=== PATIENT | female | born 1975 | race Caucasian/White ===

== ENCOUNTER → 2016-07-12 | Outpatient (CLI) | payer OTHER ==
[~2016-07-12] MED LIST: AZIT500T2 PO; DICL75TA PO; HYDR-3533 PO; LEVO.1 PO; LEXA10TA PO; METO50TA PO; PRED5PAK PO; PRED5PAK2 PO; SYNT88TA PO; VALT1TAB PO
[2016-07-12 10:49] LABS: FREE T3 2.49 PG/ML (2.18-3.98)
== END ==
LOC: ELAB 08:00
DX: E03.9 Hypothyroidism, unspecified (principal); E27.9 Disorder of adrenal gland, unspecified
CPT/HCPCS: 36415; 82024; 82533; 84443; 84481

== ENCOUNTER → 2016-07-29 | Outpatient (CLI) | payer OTHER ==
[2016-07-29 16:00] LABS: CHLAMYDIA PCR NOT DETECTED (NOT DETECT); NEISSERIA PCR NOT DETECTED (NOT DETECT)
[2016-07-31 17:52] LABS: HSV2 IGM IFA NEGATIVE (())
== END ==
LOC: ELAB 11:38
PROVIDERS: ATTEND Obstetrics & Gynecology
DX: Z11.3 Encounter for screening for infections with a predominantly sexual mode of transmission (principal); R35.0 Frequency of micturition; B96.89 Other specified bacterial agents as the cause of diseases classified elsewhere
CPT/HCPCS: 36415; 86695; 86696; 87077; 87086; 87186; 87491; 87591

== ENCOUNTER 2016-10-31 02:50 | Emergency (ER) | payer OTHER ==
[~2016-10-31] VITALS: Ht 157.5 cm; Wt 93.0 kg
[~2016-10-31 02:50] MED LIST changes: -DICL75TA PO; -HYDR-3533 PO; -SYNT88TA PO; -VALT1TAB PO
[2016-10-31 02:53] VITALS: BP 135/88; PULSE 66; RESP 16; TEMP 98; O2SAT 98
[2016-10-31] MEDS ORDERED: SYNT88TA PO (03:26)
[2016-10-31] MEDS ORDERED: VALT1TAB PO (03:26)
[2016-10-31] MEDS ORDERED: ACETAMINOPHEN/HYDROcodone 325 MG/5 MG TAB PO ONE (03:30)
--- NOTE | 2016-10-31 03:40 | PD ---
HPI Chief Complaint: Injury Time Seen by Provider: 03:30 Travel History International Travel<30 days: No Contact w/Intl Traveler<30days: No Traveled to known affect area: No History of Present Illness HPI 41-year-old white female presents to emergency department with complaints of left foot pain. She states that she has had pain now on and off for several months. She was diagnosed with plantar fasciitis. She states that she had rest her foot and taken ibuprofen and has had improvement of her pain. She also had change tissues. Over last month or 2 she has had pain recur. She states that she has not been exercising or doing any significant physical activity and has had worsening pain across the arch across the proximal forefoot up into her pretibial region. She states that ibuprofen is not helping at this point. The patient states that she was just recently treated for pneumonia with Zithromax and prednisone. She had neglected to tell her doctor that her foot had been bothering her. She presents this evening due to pain. Pain is moderate. Worse with activity. She denies any direct trauma. No numbness or tingling. PFSH Past Medical History Narrative Medical Hypertension, genital herpes, hypothyroidism, plantars fasciatus I Cancer: No Cardiovascular Problems: No Diabetes: No Diminished Hearing: No Endocrine: Yes Genitourinary: No Hepatitis: No Hiatal Hernia: No Hypertension: Yes Immune Disorder: No Musculoskeletal: No Neurologic: No Psychiatric: Yes (anxiety ,depression) Reproductive: No Respiratory: No Immunizations Current: No Seizures: Yes ( A CHILD) Thyroid Disease: Yes ?: Not : 0 Past Surgical History AICD: No Joint Replacement: No Oral Surgery: Yes (septoplasty tympnoplasty) Pacemaker: No Tympanostomy Tube: Yes Other Surgery: Yes (SEPTOPLASTY; RHINOPLASTY) Social History Alcohol Use: Yes (rare) Tobacco Use: No Substance Use: No Allergies-Medications (Allergen,Severity, Reaction): Coded Allergies: Percocet (Unverified Allergy, Severe, nausea, 10/31/16) Reported Meds & Prescriptions Reported Meds & Active Scripts Active Lortab (Hydrocodone-Acetaminophen) 5-325 Mg Tab 1 Tab PO Q8HR PRN Diclofenac Sodium DR (Diclofenac Sodium) 75 Mg Tabdr 75 Mg PO BID Prednisone (48) 5 mg tab Dose Pack (Prednisone) 5 Mg Dspk 5 Mg PO DIRECTED Lexapro (Escitalopram Oxalate) 10 Mg Tab 10 Mg PO HS Metoprolol Tartrate 50 Mg Tab 50 Mg PO DAILY Reported Valtrex (Valacyclovir HCl) 1 Gm Tab 1,000 Mg PO DAILY Synthroid (Levothyroxine Sodium) 88 Mcg Tab 88 Mcg PO DAILY Review of Systems Except as stated in HPI: all other systems reviewed are Neg Physical Exam Narrative GENERAL: This is a well-nourished, well-developed patient, in no apparent distress. SKIN: No rashes, ecchymoses or lesions. Warm and dry. HEAD: Atraumatic. Normocephalic. EYES: PERRL, EOMI, no discharge or injection. No scleral icterus. EARS: Clear NOSE: Nasal turbinates appear normal. THROAT: Mucosa pink and moist. Airway patent. NECK: Trachea midline. supple, moves head freely. LUNGS: Clear to auscultation. CV: Regular in rhythm. ABDOMEN: Soft nontender. EXT: No clubbing cyanosis or edema. Examination of the left lower extremity reveals intact sensation with good distal pulse. There is no erythema or warmth. No joint effusion. No swelling. She complains of pain across the proximal forefoot across the arch of the foot into the heel. No pain in the Achilles or calf. No distal forefoot tenderness. Data Data Last Documented VS Vital Signs Date Time Temp Pulse Resp B/P Pulse Ox O2 Delivery O2 Flow Rate FiO2 10/31/16 02:53 98.0 66 16 135/88 98 Orders Foot, Complete ([id number]) (10/31/16 03:27) Splint Or Brace Apply/Monitor (10/31/16 03:27) Crutches (10/31/16 03:27) Acetamin-Hydrocod 325-5 Mg ([place] 5-325 (10/31/16 03:30) MDM Medical Decision Making Medical Screen Exam Complete: Yes Emergency Medical Condition: Yes Medical Record Reviewed: Yes Interpretation(s) Left foot: Negative for fracture. Positive degenerative changes without heel spur Differential Diagnosis Differential diagnoses: Sprain, strain, plantar fasciitis, tarsal tunnel syndrome Narrative Course X-ray of the left foot shows mild degenerative changes Patient given Lortab 5 mg by mouth for pain here. She given Miko wrap and crutches. This is right foot pain rule out plantar fasciitis, tendinitis, tarsal tunnel syndrome Diagnosis Primary Impression: Right foot pain Patient Instructions: General Instructions Departure Forms: Tests/Procedures, Work Release Special Instructions: Sedentary work 3 days. Additional Instructions: Rest. Elevation. Ice packs for the next 3 days. Miko wrap and crutches. No weight-bearing and then progress to weight-bearing as tolerated. Medications as directed Follow-up with an orthopedist or your doctor in one week. Return to the ER if any problems Med/Other Pt SpecificInfo: Prescription(s) given Scripts Hydrocodone-Acetaminophen (Lortab)5-325 Mg Tab1 Tab PO Q8HR PRN (PAIN) #12 TAB Prov:Jeremy Mason MD 10/31/[address] 75 Mg Tabdr75 Mg PO BID #20 TAB Prov:Jeremy Mason MD 10/31/16 Disposition: 01 DISCHARGE HOME Condition: Stable Odin Bradford Oct 31, 2016 03:40
[2016-10-31] MEDS ORDERED: DICL75TA PO (04:25)
[2016-10-31] MEDS ORDERED: HYDR-3533 PO (04:25)
--- NOTE | 2016-10-31 04:25 | RADRPT ---
EXAM DATE/TIME: 10/31/2016 03:54 [facility] COMPARISON: No previous studies available for comparison. INDICATIONS : Fall days ago. Pain and swelling. MEDICAL HISTORY : None. SURGICAL HISTORY : None. ENCOUNTER: Initial ACUITY: 4 - 6 days PAIN SCORE: 6/10 LOCATION: Left lateral FINDINGS: Three view examination of the left foot demonstrates no soft tissue swelling, dislocation, or fractur e. The tarsal bones appear intact. The interphalangeal and metatarsophalangeal joints are intact. The calcaneus is intact. Bony mineralization is normal. CONCLUSION: Unremarkable exam. Micah Paris MD on October 31, 2016 at 4:23 Board Certified Radiologist. This report was verified electronically.
[2016-11-11] MEDS ORDERED: METO50TA PO (14:36)
[2016-12-06] MEDS ORDERED: LEXA10TA PO (16:31)
== END 2016-10-31 04:45 | disposition home or self-care (01) ==
LOC: NEPD 02:50
DX: M79.672 Pain in left foot (principal); I10 Essential (primary) hypertension
CPT/HCPCS: 73630; 99283; E0113; 29105

== ENCOUNTER → 2016-10-31 | Outpatient (CLI) | payer OTHER ==
[~2016-10-31] MED LIST changes: -AZIT500T2 PO; -PRED5PAK PO
[2016-10-31 09:12] LABS: FREE T3 2.32 PG/ML (2.18-3.98); FREE T4 0.93 NG/DL (0.76-1.46)
== END ==
LOC: ELAB 07:16
DX: E03.9 Hypothyroidism, unspecified (principal)
CPT/HCPCS: 36415; 84439; 84443; 84481

== ENCOUNTER → 2016-12-02 | Outpatient (CLI) | payer OTHER ==
[~2016-12-02] MED LIST changes: +DICL75TA PO; +HYDR-3533 PO; -LEVO.1 PO; +SYNT88TA PO; +VALT1TAB PO
[2016-12-02 09:51] LABS: FREE T3 1.83 PG/ML (2.18-3.98); FREE T4 1.02 NG/DL (0.76-1.46)
== END ==
LOC: ELAB 08:04
DX: E03.9 Hypothyroidism, unspecified (principal)
CPT/HCPCS: 36415; 84439; 84443; 84481

== ENCOUNTER → 2016-12-26 | Outpatient (CLI) | payer OTHER | LOC: CLAB 10:08 | PROVIDERS: ATTEND Obstetrics & Gynecology | DX: R35.0 Frequency of micturition (principal) | CPT/HCPCS: 87086 ==

== ENCOUNTER → 2017-01-13 | Outpatient (CLI) | payer OTHER ==
[2017-01-13 09:46] LABS: FREE T4 1.12 NG/DL (0.76-1.46)
== END ==
LOC: ELAB 07:53
DX: E03.9 Hypothyroidism, unspecified (principal)
CPT/HCPCS: 36415; 84439; 84443; 84481

== ENCOUNTER → 2017-03-08 | Outpatient (CLI) | payer OTHER ==
[~2017-03-08] MED LIST changes: +CYCL1TAB29 PO; +DICL1CAP3 PO; -DICL75TA PO; +HORMONE SUPPLEMENT; -HYDR-3533 PO; +KETO60IN6 IM; +LEVO100T5 PO; +MEDR4PAK PO; +MOBI15TA PO; +NORC5TAB PO; +PRED20 PO; -PRED5PAK2 PO; +TIZA4CAP3 PO; +TRAM50TA PO; +TYLE325T PO; +ZANT300T PO
[2017-03-08 09:42] LABS: FREE T3 2.65 PG/ML (2.18-3.98); THYROXINE (T4) 7.7 MCG/DL (4.8-13.9)
== END ==
LOC: ELAB 07:16
DX: E03.9 Hypothyroidism, unspecified (principal)
CPT/HCPCS: 36415; 84436; 84443; 84481

== ENCOUNTER 2017-03-19 11:10 | Emergency (ER) | payer OTHER ==
[~2017-03-19] VITALS: Ht 157.5 cm; Wt 90.0 kg
[~2017-03-19 11:10] MED LIST changes: -CYCL1TAB29 PO; -DICL1CAP3 PO; -HORMONE SUPPLEMENT; -KETO60IN6 IM; -LEVO100T5 PO; -MEDR4PAK PO; -NORC5TAB PO; -PRED20 PO; -TRAM50TA PO; -TYLE325T PO; -ZANT300T PO
[2017-03-19 11:12] VITALS: BP 128/84; PULSE 90; RESP 24; TEMP 97.9; O2SAT 97
[2017-03-19] MEDS ORDERED: MEDR4PAK PO (11:59)
--- NOTE | 2017-03-19 12:00 | PD ---
HPI Chief Complaint: Back/ Neck Pain or Injury Time Seen by Provider: 11:58 Travel History International Travel<30 days: No Contact w/Intl Traveler<30days: No Traveled to known affect area: No History of Present Illness HPI 49-year-old female presents to the emergency department complaining of left lower back pain that radiates down her left leg for over one month. Denies injury. Denies encopresis, incontinence, saddle anesthesia. Denies IV drug use or cancer. Denies fever, abdominal pain, dysuria, change in stool. Reports vomiting one time yesterday and she associates it to being in pain. Denies difficulty ambulating, except for it aggravates pain. Has tried ibuprofen, meloxicam, naproxen, Flexeril for symptom management. Has seen her primary care provider in regards to this complaint. Pain is aggravated with movement. Pain is decreased by laying on her stomach with her legs tucked up underneath her. Has no other medical complaints. Allergies oxycodone. Patient states she is not allergic to acetaminophen. Symptoms are moderate in severity. No other modifying factors or associated signs and symptoms. PFSH Past Medical History Cancer: No Cardiovascular Problems: No Diabetes: No Diminished Hearing: No Endocrine: Yes Genitourinary: No Hepatitis: No Hiatal Hernia: No Hypertension: Yes Immune Disorder: No Musculoskeletal: No Neurologic: No Psychiatric: Yes (anxiety ,depression) Reproductive: No Respiratory: No Immunizations Current: No Seizures: Yes ( A CHILD) Thyroid Disease: Yes ?: Not : 0 Past Surgical History AICD: No Joint Replacement: No Oral Surgery: Yes (septoplasty tympnoplasty) Pacemaker: No Tympanostomy Tube: Yes Other Surgery: Yes (SEPTOPLASTY; RHINOPLASTY) Social History Alcohol Use: Yes (rare) Tobacco Use: No Substance Use: No Allergies-Medications (Allergen,Severity, Reaction): Coded Allergies: acetaminophen (Unverified Allergy, Severe, nausea, 03/09/17) oxycodone (Unverified Allergy, Severe, nausea, 03/09/17) Reported Meds & Prescriptions Reported Meds & Active Scripts Active Medrol Dosepak (Methylprednisolone) 4 Mg Dspk 4 Mg PO DIRECTED Per Pharmacist direction Tizanidine (Tizanidine HCl) 4 Mg Cap 4 Mg PO TID Mobic (Meloxicam) 15 Mg Tab 15 Mg PO DAILY Lexapro (Escitalopram Oxalate) 10 Mg Tab 10 Mg PO HS Metoprolol Tartrate 50 Mg Tab 50 Mg PO DAILY Reported Valtrex (Valacyclovir HCl) 1 Gm Tab 1,000 Mg PO DAILY Synthroid (Levothyroxine Sodium) 88 Mcg Tab 88 Mcg PO DAILY Review of Systems Except as stated in HPI: all other systems reviewed are Neg Physical Exam Narrative GENERAL: Well-nourished, well-developed female patient, in no acute distress; afebrile, nontoxic-appearing SKIN: Warm and dry. HEAD: Atraumatic. Normocephalic. EYES: Pupils equal and round. No scleral icterus. No injection or drainage. ENT: Mucosa pink and moist. Airway patent. NECK: Trachea midline. CARDIOVASCULAR: Regular rate. RESPIRATORY: No accessory muscle use. GASTROINTESTINAL: Obese. MUSCULOSKELETAL: Bilateral lower extremities supple and non-tense with 2+ pedal pulses and sensory intact; with full range of motion and 5/5 strength. 2 + DTRs bilaterally. Active dorsiflexion and extension of bilateral feet. Left straight leg raise is positive for low back pain. Ambulatory in room with left lower extremity limp. Sitting up in bed at 90. No obvious deformities. No clubbing. No cyanosis. No edema. BACK: No midline point tenderness on palpation of the lumbar spine. Tenderness on palpation of left lumbar iliosacral area. No obvious deformities. NEUROLOGICAL: Awake and alert. Oriented 3. No obvious cranial nerve deficits. Motor grossly within normal limits. Normal speech. Moves all extremities. 5/5 strength to all extremities. Sensory intact. PSYCHIATRIC: Appropriate mood and affect; insight and judgment normal. Data Data Last Documented VS Vital Signs Date Time Temp Pulse Resp B/P (MAP) Pulse Ox O2 Delivery O2 Flow Rate FiO2 03/19/17 11:12 97.9 90 24 128/84 (99) 97 Room Air Orders Orders Ketorolac Inj (Toradol Inj) (03/19/17 12:15) Orphenadrine Inj (Norflex Inj) (03/19/17 12:15) MDM Medical Decision Making Medical Screen Exam Complete: Yes Emergency Medical Condition: Yes Medical Record Reviewed: Yes Differential Diagnosis Sciatica, low back pain, lumbar radiculopathy, low back strain Narrative Course 41-year-old female physical examination consistent with left-sided low back pain with sciatica. Denies encopresis, incontinence, saddle anesthesia. Denies IV drug use or cancer. Patient is afebrile and nontoxic-appearing. No midline tenderness on palpation of the lumbar spine. Ambulatory in the room with a limp to the left lower extremities. Has been seen by her primary care provider with multiple other treatments for symptom management. Patient has NSAIDs and muscle relaxers at home. Toradol and Norflex administered in the ER. Medrol dosepak was supplied for the patient for home. Instructed patient to follow up with primary care provider. Patient verbalizes understanding and agreement with treatment plan. Patient is medically cleared and stable for discharge. Discussed reasons to return to the emergency department. Patient agrees with treatment plan. The patients vital signs are stable and the patient is stable for outpatient follow-up and treatment. Patient discharged home, stable and in no acute distress. Diagnosis Primary Impression: Left-sided low back pain with sciatica Qualified Codes: M54.42 - Lumbago with sciatica, left side Referrals: Primary Care Physician Patient Instructions: Acute Low Back Pain (ED), General Instructions, Sciatica (ED) Additional Instructions: Tylenol or ibuprofen as directed and as needed for pain Muscle relaxers as prescribed and as needed for muscle spasms Heating pad and/or ice to affected area to reduce pain Avoid aggravating activities; increase activity as tolerated Follow-up with primary care provider Return to emergency department immediately with worsening of symptoms Med/Other Pt SpecificInfo: Prescription(s) given Scripts Methylprednisolone Dosepak (Medrol Dosepak) 4 Mg Dspk 4 MG PO DIRECTED, #1 DSPK 0 Refills Per Pharmacist direction Prov: Ashley Steele 03/19/17 Disposition: 01 DISCHARGE HOME Condition: Stable Ashley Steele Mar 19, 2017 12:00
[2017-03-19] MEDS ORDERED: ORPHENADRINE INJ 60 MG/2 ML AMP IM ONE (12:15)
[2017-03-19] MEDS ORDERED: KETOROLAC TROMETHAMINE 60 MG/2 ML (IM) VIAL IM ONE (12:15)
[2017-03-24] MEDS ORDERED: TRAM50TA PO (09:06)
[2017-03-24] MEDS ORDERED: KETO60IN6 IM (09:07)
[2017-03-31] MEDS ORDERED: NORC5TAB PO (09:22)
[2017-03-31] MEDS ORDERED: METO50TA PO (09:22)
[2017-03-31] MEDS ORDERED: LEXA10TA PO (09:22)
== END 2017-03-19 13:14 | disposition home or self-care (01) ==
LOC: NEPK 11:10
DX: M54.42 Lumbago with sciatica, left side (principal)
CPT/HCPCS: 96372; 99284; J1885; J2360

== ENCOUNTER 2017-03-24 09:47 | Emergency (ER) | payer OTHER ==
[~2017-03-24] VITALS: Ht 165.1 cm; Wt 100.0 kg
[~2017-03-24 09:47] MED LIST changes: +KETO60IN6 IM; +MEDR4PAK PO; +TRAM50TA PO
[2017-03-24 09:59] VITALS: BP 121/67; PULSE 70; RESP 20; TEMP 98.7; O2SAT 97
[2017-03-24] MEDS ORDERED: CYCL1TAB29 PO (10:15)
[2017-03-24] MEDS ORDERED: HORMONE SUPPLEMENT (10:15)
[2017-03-24] MEDS ORDERED: LEVO100T5 PO (10:15)
[2017-03-24] MEDS ORDERED: TYLE325T PO (10:15)
[2017-03-24] MEDS ORDERED: DEXAMETHASONE SOD PHOS 4 MG/ML VIAL IM ONE (11:30)
[2017-03-24] MEDS ORDERED: ACETAMINOPHEN/HYDROcodone 325 MG/5 MG TAB PO ONE (11:30)
[2017-03-24] MEDS ORDERED: NORC5TAB PO (11:39)
[2017-03-24] MEDS ORDERED: PRED20 PO (11:39)
[2017-03-24] MEDS ORDERED: ZANT300T PO (11:40)
--- NOTE | 2017-03-24 11:40 | PD ---
HPI Chief Complaint: Pain: Acute or Chronic Time Seen by Provider: 10:19 Travel History International Travel<30 days: No Contact w/Intl Traveler<30days: No Traveled to known affect area: No History of Present Illness HPI 41-year-old female complains of left low back pain, left leg pain. Patient states that she has sciatica pain for the past month. Patient states the pain get worse for the past few days. Patient has been taking meloxicam, Naprosyn, Flexeril for pain. Patient was seen in emergency room 5 days ago for the pain. Patient was given Toradol and Norflex injection. Patient was given prescription for Medrol Dosepak. Patient states that the pain got better and get worse again today. Patient denies any new injury. Patient states that she has some numbness sensation on the bottom of left foot. Patient states that she has severe pain started on the left side low back area to the buttock area with radiation to left leg. Patient states the pain is worse with weightbearing. Patient denies any weakness and numbness lower extremity. Patient denies any saddle anesthesia. Patient denies any bladder or bowel control problem. PFSH Past Medical History Anxiety: Yes Depression: Yes Cancer: No Cardiovascular Problems: No Diabetes: No Diminished Hearing: No Endocrine: Yes Genitourinary: No Hepatitis: No Hiatal Hernia: No Hypertension: Yes Immune Disorder: No Medical other: Yes (sciatica) Musculoskeletal: No Neurologic: No Psychiatric: Yes (anxiety ,depression) Reproductive: No Respiratory: No Immunizations Current: No Seizures: Yes ( A CHILD) Thyroid Disease: Yes ?: Not : 0 Tubal Ligation: Yes (CERVICAL ABLATION) Past Surgical History AICD: No Joint Replacement: No Oral Surgery: Yes (septoplasty tympnoplasty rhinoplasty) Pacemaker: No Tympanostomy Tube: Yes Social History Alcohol Use: Yes (rare) Tobacco Use: No Substance Use: No Allergies-Medications (Allergen,Severity, Reaction): Coded Allergies: acetaminophen (Unverified Allergy, Severe, nausea, 03/24/17) oxycodone (Unverified Allergy, Severe, nausea, 03/24/17) Reported Meds & Prescriptions Reported Meds & Active Scripts Active Tramadol (Tramadol HCl) 50 Mg Tab 50 Mg PO Q4H PRN Tizanidine (Tizanidine HCl) 4 Mg Cap 4 Mg PO TID Lexapro (Escitalopram Oxalate) 10 Mg Tab 10 Mg PO HS Metoprolol Tartrate 50 Mg Tab 50 Mg PO DAILY Reported [hormone supplement] 25 EVERY OTHER DAY Levothyroxine (Levothyroxine Sodium) 100 Mcg Tab 100 Mcg PO DAILY Tylenol (Acetaminophen) 325 Mg Tab 1,000 Mg PO BID Flexeril (Cyclobenzaprine HCl) 10 Mg Tab 20 Mg PO HS Valtrex (Valacyclovir HCl) 1 Gm Tab 1,000 Mg PO DAILY Review of Systems General / Constitutional: No: Fever Eyes: No: Visual changes HENT: No: Headaches Cardiovascular: No: Chest Pain or Discomfort Respiratory: No: Shortness of Breath Gastrointestinal: No: Abdominal Pain Genitourinary: No: Dysuria Musculoskeletal: No: Pain Skin: No Rash Neurologic: No: Weakness Psychiatric: No: Depression Endocrine: No: Polydipsia Hematologic/Lymphatic: No: Easy Bruising Physical Exam Narrative GENERAL: Well-nourished, well-developed patient. SKIN: Focused skin assessment warm/dry. HEAD: Normocephalic. EYES: No scleral icterus. No injection or drainage. NECK: Supple, trachea midline. No JVD or lymphadenopathy. CARDIOVASCULAR: Regular rate and rhythm without murmurs, gallops, or rubs. RESPIRATORY: Breath sounds equal bilaterally. No accessory muscle use. GASTROINTESTINAL: Abdomen soft, non-tender, nondistended. MUSCULOSKELETAL: No cyanosis, or edema. BACK: Patient has moderate tenderness on palpation left sciatic notch area with positive straight leg raising on the left leg. Neurologic exam normal. Data Data Last Documented VS Vital Signs Date Time Temp Pulse Resp B/P (MAP) Pulse Ox O2 Delivery O2 Flow Rate FiO2 03/24/17 09:59 98.7 70 20 121/67 (85) 97 Orders Orders Dexamethasone Inj (Decadron Inj) (03/24/17 11:30) Acetamin-Hydrocod 325-5 Mg ([place] 5-325 (03/24/17 11:30) [facility] Medical Decision Making Medical Screen Exam Complete: Yes Emergency Medical Condition: Yes Differential Diagnosis Differential diagnosis including sciatica, neuropathy, fracture, HNP. Narrative Course 41-year-old female with acute exacerbation of sciatica. Decadron 8 mg IM. Lortab 5/325, one tablet by mouth given. Diagnosis Primary Impression: Sciatica Qualified Codes: M54.32 - Sciatica, left side Patient Instructions: General Instructions Additional Instructions: Prednisone as directed. Hydrocodone as directed. Follow-up with personal physician and orthopedist. Med/Other Pt SpecificInfo: Prescription(s) given Scripts Ranitidine (Zantac) 300 Mg Tab 300 MG PO DAILY, #10 TAB 0 Refills Prov: Harlan Harrington MD 03/24/17 Prednisone (Prednisone) 20 Mg Tab 20 MG PO BID, #14 TAB 0 Refills Prov: Harlan Harrington MD 03/24/17 Hydrocodone-Acetaminophen ([place]) 5-325 mg Tab 1 TAB PO Q6H Y for PAIN, #20 TAB 0 Refills Prov: Harlan Harrington MD 03/24/17 Disposition: 01 DISCHARGE HOME Condition: Stable Harlan Harrington MD Mar 24, 2017 11:40
[2017-03-31] MEDS ORDERED: NORC5TAB PO (09:22)
[2017-03-31] MEDS ORDERED: METO50TA PO (09:22)
[2017-03-31] MEDS ORDERED: LEXA10TA PO (09:22)
== END 2017-03-24 14:17 | disposition home or self-care (01) ==
LOC: NEPD 09:47
DX: M54.42 Lumbago with sciatica, left side (principal)
CPT/HCPCS: 96372; 99284; J1100

== ENCOUNTER 2017-05-11 14:18 | Emergency (ER) | payer OTHER ==
[~2017-05-11] VITALS: Ht 157.5 cm; Wt 95.0 kg
[~2017-05-11 14:18] MED LIST changes: +CYCL10TA PO; -KETO60IN6 IM; +LEVO100T5 PO; -MEDR4PAK PO; -MOBI15TA PO; +NORC5TAB PO; -SYNT88TA PO; +TYLE325T PO; +ZANT300T PO
[2017-05-11 14:19] VITALS: BP 145/89; PULSE 78; RESP 16; TEMP 98.6; O2SAT 96
--- NOTE | 2017-05-11 14:45 | PD ---
HPI Chief Complaint: Edema Time Seen by Provider: 14:43 Travel History International Travel<30 days: No Contact w/Intl Traveler<30days: No Traveled to known affect area: No History of Present Illness HPI 42-year-old female presents to emergency Department with complaint of left lower leg swelling and tenderness times one week. She has history of bilateral sciatica and has numbness and tingling to both bilateral lower extremities which she says is unchanged. Says she has had decreased activity secondary to the sciatica and low back pain caused by activity. Denies loss of sensation, decreased range of motion, decreased strength bilateral lower extremities. Denies history of DVT. Denies anticoagulant therapy. Denies fever. Reports nausea without vomiting. Denies chest pain, shortness of breath, abdominal pain. Describes the pain as a burning and tightness. Rates the pain 2/10 while at rest. Pain is worse with palpation, ambulation and flexion of the foot. Has been taking ibuprofen for symptom management. Has an appointment with neurosurgery tomorrow in regards to her sciatica. Primary care provider is Dr. Ramsay. History of sciatica and hypertension. Allergies to Percocet. Has no other medical complaints. No other modifying factors or associated signs and symptoms. PFSH Past Medical History Anxiety: Yes Depression: Yes Cancer: No Cardiovascular Problems: No Diabetes: No Diminished Hearing: No Endocrine: Yes Genitourinary: No Hepatitis: No Hiatal Hernia: No Hypertension: Yes Immune Disorder: No Musculoskeletal: No Neurologic: No Psychiatric: Yes (anxiety ,depression) Reproductive: No Respiratory: No Immunizations Current: No Seizures: Yes ( A CHILD) Thyroid Disease: Yes ?: Not LMP: 04/2017 : 0 Tubal Ligation: Yes (CERVICAL ABLATION) Past Surgical History AICD: No Joint Replacement: No Oral Surgery: Yes (septoplasty tympnoplasty rhinoplasty) Pacemaker: No Tympanostomy Tube: Yes Social History Alcohol Use: Yes (rare) Tobacco Use: No Substance Use: No Allergies-Medications (Allergen,Severity, Reaction): Coded Allergies: acetaminophen (Unverified Allergy, Severe, nausea, 05/11/17) oxycodone (Unverified Allergy, Severe, nausea, 05/11/17) Reported Meds & Prescriptions Reported Meds & Active Scripts Active Xarelto (Rivaroxaban) 20 Mg Tab 20 Mg PO DAILY 7 Days Xarelto (Rivaroxaban) 15 Mg Tab 15 Mg PO Q12HR 21 Days [place] (Hydrocodone-Acetaminophen) 5-325 mg Tab 1 Tab PO Q6H PRN Lexapro (Escitalopram Oxalate) 10 Mg Tab 10 Mg PO HS Metoprolol Tartrate 50 Mg Tab 50 Mg PO DAILY Zantac (Ranitidine HCl) 300 Mg Tab 300 Mg PO DAILY Tramadol (Tramadol HCl) 50 Mg Tab 50 Mg PO Q4H PRN Tizanidine (Tizanidine HCl) 4 Mg Cap 4 Mg PO TID Reported Levothyroxine (Levothyroxine Sodium) 100 Mcg Tab 100 Mcg PO DAILY Tylenol (Acetaminophen) 325 Mg Tab 1,000 Mg PO BID Flexeril (Cyclobenzaprine HCl) 10 Mg Tab 20 Mg PO HS Valtrex (Valacyclovir HCl) 1 Gm Tab 1,000 Mg PO DAILY Review of Systems Except as stated in HPI: all other systems reviewed are Neg Physical Exam Narrative GENERAL: Well-nourished, well-developed female patient, in no acute distress SKIN: Warm and dry. HEAD: Atraumatic. Normocephalic. EYES: Pupils equal and round. No scleral icterus. No injection or drainage. ENT: Mucosa pink and moist. Airway patent. NECK: Trachea midline. CARDIOVASCULAR: Regular rate. RESPIRATORY: No accessory muscle use. GASTROINTESTINAL: Obese. MUSCULOSKELETAL: Left lower extremity supple and non-tense with 2+ pedal pulse and sensory intact without erythema. Left lower extremity edema noted, when compared to the right. Nonpitting edema. Reproducible tenderness on palpation to the posterior upper calf. No obvious deformities. No clubbing. No cyanosis. NEUROLOGICAL: Awake and alert. Oriented 3. No obvious cranial nerve deficits. Motor grossly within normal limits. Normal speech. PSYCHIATRIC: Appropriate mood and affect; insight and judgment normal. Data Data Last Documented VS Vital Signs Date Time Temp Pulse Resp B/P (MAP) Pulse Ox O2 Delivery O2 Flow Rate FiO2 05/11/17 17:00 60 17 147/86 (106) 99 Room Air 05/11/17 14:19 98.6 Orders Orders Us Leg Venous Doppler (05/11/17 ) Basic Metabolic Panel (Bmp) (05/11/17 16:38) Complete Blood Count With Diff (05/11/17 16:38) Prothrombin Time / Inr (Pt) (05/11/17 16:38) Act Partial Throm Time (Ptt) (05/11/17 16:38) Rivaroxaban (Xarelto) (05/11/17 18:00) Ed Discharge Order (05/11/17 17:56) Labs Laboratory Tests Test 05/11/17 16:55 White Blood Count 8.2 TH/MM3 Red Blood Count 4.80 MIL/MM3 Hemoglobin 14.3 GM/DL Hematocrit 42.3 % Mean Corpuscular Volume 88.2 FL Mean Corpuscular Hemoglobin 29.7 PG Mean Corpuscular Hemoglobin Concent 33.7 % Red Cell Distribution Width 14.2 % Platelet Count 212 TH/MM3 Mean Platelet Volume 8.0 FL Neutrophils (%) (Auto) 60.7 % Lymphocytes (%) (Auto) 30.1 % Monocytes (%) (Auto) 6.6 % Eosinophils (%) (Auto) 2.2 % Basophils (%) (Auto) 0.4 % Neutrophils # (Auto) 5.0 TH/MM3 Lymphocytes # (Auto) 2.5 TH/MM3 Monocytes # (Auto) 0.5 TH/MM3 Eosinophils # (Auto) 0.2 TH/MM3 Basophils # (Auto) 0.0 TH/MM3 CBC Comment DIFF FINAL Differential Comment Prothrombin Time 10.7 SEC Prothromb Time International Ratio 1.0 RATIO Activated Partial Thromboplast Time 27.8 SEC Blood Urea Nitrogen 8 MG/DL Creatinine 0.81 MG/DL Random Glucose 80 MG/DL Calcium Level 9.3 MG/DL Sodium Level 140 MEQ/L Potassium Level 4.1 MEQ/L Chloride Level 106 MEQ/L Carbon Dioxide Level 25.8 MEQ/L Anion Gap 8 MEQ/L Estimat Glomerular Filtration Rate 78 ML/MIN [facility] Medical Decision Making Medical Screen Exam Complete: Yes Emergency Medical Condition: Yes Medical Record Reviewed: Yes Differential Diagnosis Superficial vein thrombosis, DVT, leg edema Narrative Course 42-year-old female with left lower extremity edema and calf tenderness. I offered the patient pain medication and she declined. Left leg venous ultrasound ordered. 1647: Left leg venous ultrasound concludes: Occlusive thrombus in the left leg. Dr. Harrington recommended obtaining labs for kidney function and baseline coags. CBC, BMP, coags ordered. 1750: CBC, BMP, coags unremarkable. First dose of Xarelto administered in the ER. Instructed patient to avoid NSAIDs. She says she is not allergic to Tylenol and asked me to remove the allergy from her chart. Tylenol allergy removed. Xarelto and Lortab prescribed for home. Instructed patient to follow up with primary care provider. Patient verbalizes understanding and agreement with treatment plan. Patient is medically cleared and stable for discharge. Discussed reasons to return to the emergency department. Patient agrees with treatment plan. The patients vital signs are stable and the patient is stable for outpatient follow-up and treatment. Patient discharged home, stable and in no acute distress. Diagnosis Primary Impression: Left leg DVT Qualified Codes: I82.412 - Acute embolism and thrombosis of left femoral vein Referrals: Primary Care Physician Patient Instructions: Deep Vein Thrombosis Prevention (ED), General Instructions Additional Instructions: Xarelto as prescribed Ibuprofen or Tylenol instructed nothing for pain and inflammation Keep leg elevated while at rest Wear compression stockings Follow-up with primary care provider within one to 2 days Return to the emergency department immediately with worsening of symptoms Med/Other Pt SpecificInfo: Prescription(s) given Scripts Hydrocodone-Acetaminophen (Lortab) 5-325 Mg Tab 1 TAB PO Q4H Y for PAIN, #20 TAB 0 Refills Prov: Ashley Steele 05/11/17 Rivaroxaban (Xarelto) 20 Mg Tab 20 MG PO DAILY for Blood Clot Prevention for 7 Days, #7 TAB 0 Refills Prov: Ashley Steele 05/11/17 Rivaroxaban (Xarelto) 15 Mg Tab 15 MG PO Q12HR for Blood Clot Prevention for 21 Days, TAB 0 Refills Prov: Ashley Steele 05/11/17 Disposition: 01 DISCHARGE HOME Condition: Stable Ashley Steele May 11, 2017 14:45
--- NOTE | 2017-05-11 16:08 | RADRPT ---
EXAM DATE/TIME: 05/11/2017 15:48 [facility] COMPARISON: No previous studies available for comparison. INDICATIONS : Left leg swelling. MEDICAL HISTORY : Hypertension. Thyroid disease. SURGICAL HISTORY : Rhinoplasty. Tympnoplasty. Septoplasty. Cervical ablation. ENCOUNTER: Initial ACUITY: 1 week PAIN SCORE: 0/10 LOCATION: Left leg. TECHNIQUE: Venous ultrasound of the leg was performed from the inguinal ligament to the proximal calf. Real-keny e, color Doppler and spectral tracing, compression and augmentation techniques were used. FINDINGS: There is occlusive thrombus the distal superficial femoral vein and left peroneal vein. No thrombus i n the common femoral vein, posterior tibial and greater saphenous vein. CONCLUSION: Occlusive thrombus in the left leg. Stas Braga MD on May 11, 2017 at 16:06 Board Certified Radiologist. This report was verified electronically.
[2017-05-11 17:00] VITALS: BP 147/86; PULSE 60; RESP 17; O2SAT 99
[2017-05-11 17:13] LABS: BASOPHIL % 0.4 % (0.0-2.0); EOSINOPHIL # 0.2 TH/MM3 (0-0.4); EOSINOPHIL % 2.2 % (0.0-4.0); HEMATOCRIT 42.3 % (35.0-46.0); HEMO FLAGS DIFF FINAL; LYMPH % 30.1 % (9.0-44.0); LYMPHOCYTE # 2.5 TH/MM3 (1.0-4.8); MEAN CELL VOLUME 88.2 FL (80.0-100.0); MEAN CORPUSCULAR HEMOGLOBIN 29.7 PG (27.0-34.0); MEAN CORPUSCULAR HGB CONC 33.7 % (32.0-36.0); MONO % 6.6 % (0.0-8.0); NEUT % 60.7 % (16.0-70.0); PLATELET COUNT 212 TH/MM3 (150-450); RED CELL DISTRIBUTION WIDTH 14.2 % (11.6-17.2); WHITE BLOOD COUNT 8.2 TH/MM3 (4.0-11.0)
[2017-05-11 17:34] LABS: APTT (PATIENT) 27.8 SEC (24.3-30.1); PROTHROMBIN TIME - PATIENT 10.7 SEC (9.8-11.6)
[2017-05-11 17:46] LABS: BICARBONATE 25.8 MEQ/L (21.0-32.0); POTASSIUM 4.1 MEQ/L (3.5-5.1)
[2017-05-11] MEDS ORDERED: XARE20TA PO (17:54)
[2017-05-11] MEDS ORDERED: XARE15TA PO (17:54)
[2017-05-11] MEDS ORDERED: RIVAROXABAN 15 MG TAB PO ONE (18:00)
[2017-05-11] MEDS ORDERED: HYDR-3533 PO (18:03)
[2017-05-11 18:56] VITALS: BP 127/89
[2017-05-12] MEDS ORDERED: VALA1TAB PO (10:46)
[2017-05-12] MEDS ORDERED: GABA300C5 PO (12:21)
[2017-05-22] MEDS ORDERED: LIOT25TA3 PO (15:01)
[2017-05-22] MEDS ORDERED: LACTCAP8 PO (15:01)
[2017-05-22] MEDS ORDERED: LYSI500T (15:01)
[2017-05-22] MEDS ORDERED: VITACAP7 PO (15:01)
[2017-05-22] MEDS ORDERED: WOMETAB5 (15:01)
[2017-05-22] MEDS ORDERED: BENA25TA6 (15:01)
[2017-05-22] MEDS ORDERED: STOO100T (15:01)
[2017-05-22] MEDS ORDERED: CETI-1 PO (15:01)
[2017-05-22] MEDS ORDERED: HYDR-3516 PO (15:01)
[2017-05-23] MEDS ORDERED: LEVO.1 PO (13:30)
[2017-05-23] MEDS ORDERED: LEXA10TA PO (14:22)
[2017-05-24] MEDS ORDERED: ENOX100P SQ (15:29)
== END 2017-05-11 19:02 | disposition home or self-care (01) ==
LOC: NEPD 14:18
DX: I82.412 Acute embolism and thrombosis of left femoral vein (principal); I10 Essential (primary) hypertension; E07.9 Disorder of thyroid, unspecified
CPT/HCPCS: 80048; 85025; 85610; 85730; 93971; 99284

== ENCOUNTER 2017-05-12 15:51 | Inpatient (IN) | payer OTHER ==
[~2017-05-12] VITALS: Ht 157.5 cm; Wt 100.8 kg
[~2017-05-12 15:51] MED LIST changes: +GABA300C5 PO; +HYDR-3533 PO; +VALA1TAB PO; +XARE15TA PO; +XARE20TA PO
[2017-05-12 16:30] VITALS: BP 156/98; PULSE 82; RESP 24; TEMP 98.3; O2SAT 96
--- NOTE | 2017-05-12 17:18 | HHI.HP ---
[facility] Service Family Medicine Primary Care Physician Bobby Ramsay MD Admission Diagnosis Diagnoses: International Travel<30 Days: No Contact w/Intl Traveler<30days: No History of Present Illness Patient of Dr. Bobby Ramsay. This is a 42 year old female with a history of DVT in her left leg diagnosed on 05/11/17. She was given a one time dose of Xarelto and sent home at that time. She is having increased swelling of the left leg with warmth and pain that is increasing. She took the Xarelto once but did not continue it based on recommendations from her neurosurgeon. She has severe disc herniation with sciatica and weakness affecting the left leg with plans to undergo surgery, but her neurosurgeon prefers her to be on Coumadin due to the reversibility of the agent. Per the patient, she travelled 5 hours on a plane to [place] in October. Besides that, her severe sciatica and left leg weakness has caused her to be much more immobile than usual. She has not been moving around much and believes this contributed to her blood clot. She reports no known family history of clotting disorders. She has no history of miscarriages (has never been ) and no prior history of blood clots. Her symptoms started one week ago with increasing redness, warmth, and swelling in her left leg, with ultrasound demonstrating an occlusive thrombus in the distal superficial femoral vein and left peroneal vein. The redness and swelling has increased some since she was in the hospital yesterday evening. She has only taken one dose of her Xarelto and discontinued it. She has no chest pain or shortness of breath. She has no pain on inspiration. No abdominal pain, nausea, vomiting, or diarrhea. No symptoms in the right leg. Review of Systems Constitutional: DENIES: Diaphoretic episodes, Fatigue, Fever, Weight gain, Weight loss, Dizziness, Change in appetite Endocrine: DENIES: Polyuria, Polyphagia Eyes: DENIES: Blurred vision, Diplopia, Double Vision Ears, nose, mouth, throat: DENIES: Tinnitus, Nasal discharge, Hoarseness, Ear Pain Respiratory: DENIES: Apneas, Cough, Snoring, Wheezing, Sputum production Cardiovascular: DENIES: Chest pain, Syncope, Dyspnea on Exertion, Lower Extremity Edema Gastrointestinal: DENIES: Abdominal pain, Black stools, Bloody stools, Constipation, Difficulty Swallowing Musculoskeletal: COMPLAINS OF: Stiffness, Back pain, DENIES: Joint pain, Muscle aches, Joint Swelling, Neck pain Integumentary: DENIES: Rash Immunologic/allergic: DENIES: Urticaria Neurologic: COMPLAINS OF: Localized weakness (left leg from sciatica, disc herniation ), DENIES: Paresthesias Psychiatric: DENIES: Anxiety, Mood changes, Depression Past Family Social History Past Medical History hypothyroidism, on levothyroxine HTN Anxiety Past Surgical History Tympanoplasty and septoplasty due to chronic sinuosities and otitis media 2007 Oral surgery, 2011, 2013, 2014 Uterine ablation and tubal ligation 2016 Reported Medications Reported Meds & Active Scripts Active Gabapentin 300 Mg Cap 300 Mg PO TID Lortab (Hydrocodone-Acetaminophen) 5-325 Mg Tab 1 Tab PO Q4H PRN Lexapro (Escitalopram Oxalate) 10 Mg Tab 10 Mg PO HS Metoprolol Tartrate 50 Mg Tab 50 Mg PO DAILY Reported Valacyclovir (Valacyclovir HCl) 1,000 Mg Tab 1,000 Mg PO DAILY Levothyroxine (Levothyroxine Sodium) 100 Mcg Tab 100 Mcg PO DAILY Tylenol (Acetaminophen) 325 Mg Tab 1,000 Mg PO BID Valtrex (Valacyclovir HCl) 1 Gm Tab 1,000 Mg PO DAILY Allergies: Coded Allergies: oxycodone (Unverified Allergy, Severe, nausea, 05/12/17) Active Ordered Medications Inpatient Medications Bisacodyl (Dulcolax Supp) 10 mg DAILY PRN RECTAL SEVERE CONSITIPATION; Start 05/12/17 at 18:15; Status UNV Escitalopram Oxalate (Lexapro) 10 mg HS PO ; Start 05/12/17 at 21:00; Status UNV Gabapentin (Neurontin) 300 mg DAILY PO ; Start 05/13/17 at 09:00; Status UNV Lactulose (Lactulose Liq) 30 ml DAILY PRN PO SEVERE CONSITIPATION; Start at 18:15; Status UNV Levothyroxine Sodium (Synthroid) 100 mcg DAILY@0600 PO ; Start 05/13/17 at 06:00 ; Status UNV Magnesium Hydroxide (Milk Of Magnesia Liq) 30 ml Q12H PRN PO Mild constipation ; Start 05/12/17 at 18:15; Status UNV Metoprolol Tartrate (Lopressor) 50 mg DAILY PO ; Start 05/13/17 at 09:00; Status UNV Naloxone HCl (Narcan Inj) 0.4 mg UNSCH PRN IV PUSH SEE LABEL COMMENTS; Start 05/12/17 at 18:15; Status UNV Ondansetron HCl (Zofran Inj) 4 mg Q6H PRN IV PUSH NAUSEA; Start 05/12/17 at 18: 15; Status UNV Senna/Docusate Sodium (Veronique-Colace) 1 tab BID PO ; Start 05/12/17 at 21:00; Status UNV Sennosides (Senokot) 17.2 mg Q12H PRN PO Moderate constipation; Start 05/12/17 at 18:15; Status UNV Sodium Chloride (NS Flush) 2 ml BID IV FLUSH ; Start 05/12/17 at 21:00; Status UNV Valacyclovir HCl (Valtrex) 1,000 mg DAILY PO ; Start 05/13/17 at 09:00; Status UNV Warfarin Sodium (Coumadin) 5 mg DAILY@16 PO ; Start 05/12/17 at 18:15; Status UNV Family History Pt is adopted and has been in contact with her family mother has history of cardiac disease and DM No history of blood clots in the family She is adopted Social History Currently works at [employer], she lives at home with her fiance She denies Smoking, has a glass of wine occasionally, denies illicit drug use. Currently on emergency leave due to disc herniation Physical Exam Vital Signs Vital Signs Date Time Temp Pulse Resp B/P (MAP) Pulse Ox O2 Delivery O2 Flow Rate FiO2 05/12/17 16:30 98.3 82 24 156/98 (117) 96 Physical Exam General: Sitting up in bed, no distress, appears comfortable Skin: No rashes or lesions HEENT: Normocephalic, no conjunctivitis, no nasal discharge, normal pharynx Neck: No thyromegaly CV: RRR, no murmurs, rubs, or gallops, regular pulses Lungs: CTAB, no wheezing, rales, or rhonchi Abdomen: Soft, nontender, non-distended Ext: Left lower extremity is swollen, mildly erythematous, positive Kerry's sign , tense and painful in the calf muscle. Thigh is not tender to palpation or swollen or tense. right leg is normal Neuro: Pain in the left lower back with palpation, 4/5 strength in the left lower extremity with hip flexion, knee extension Septic Shock Reassessment Heart: Regular rate and rhythm Lungs: Clear Skin: Warm Capillary Refill: <2 seconds Caprini VTE Risk Assessment Caprini VTE Risk Assessment: Mod/High Risk (score >= 2) Caprini Risk Assessment Model Point Value = 1 Point Value = 2 Point Value = 3 Point Value = 5 Age 41-60 Minor surgery BMI > 25 kg/m2 Swollen legs Varicose veins or History of unexplained or recurrent spontaneous Oral contraceptives or hormone replacement Sepsis (< 1 month) Serious lung disease, including pneumonia (< 1 month) Abnormal pulmonary function Acute myocardial infarction Congestive heart failure (< 1 month) History of inflammatory bowel disease Medical patient at bed rest Age 61-74 Arthroscopic surgery Major open surgery (> 45 min) Laparoscopic surgery (> 45 min) Malignancy Confined to bed (> 72 hours) Immobilizing plaster cast Central venous access Age >= 75 History of VTE Family history of VTE Factor V Leiden Prothrombin [id number] Lupus anticoagulant Anticardiolipin antibodies Elevated serum homocysteine Heparin-induced thrombocytopenia Other congenital or acquired thrombophilia Stroke (< 1 month) Elective arthroplasty Hip, pelvis, or leg fracture Acute spinal cord injury (< 1 month) Prophylaxis Regimen Total Risk Factor Score Risk Level Prophylaxis Regimen 0-1 Low Early ambulation 2 Moderate Order ONE of the following: *Sequential Compression Device (SCD) *Heparin 5000 units SQ BID 3-4 Higher Order ONE of the following medications: *Heparin 5000 units SQ TID *Enoxaparin/Lovenox 40 mg SQ daily (WT < 150 kg, CrCl > 30 mL/min) *Enoxaparin/Lovenox 30 mg SQ daily (WT < 150 kg, CrCl > 10-29 mL/min) *Enoxaparin/Lovenox 30 mg SQ BID (WT < 150 kg, CrCl > 30 mL/min) AND/OR *Sequential Compression Device (SCD) 5 or more Highest Order ONE of the following medications: *Heparin 5000 units SQ TID (Preferred with Epidurals) *Enoxaparin/Lovenox 40 mg SQ daily (WT < 150 kg, CrCl > 30 mL/min) *Enoxaparin/Lovenox 30 mg SQ daily (WT < 150 kg, CrCl > 10-29 mL/min) *Enoxaparin/Lovenox 30 mg SQ BID (WT < 150 kg, CrCl > 30 mL/min) AND *Sequential Compression Device (SCD) Assessment and Plan Assessment and Plan 42 year old presents with provoked first time DVT, no prior history of blood clots, no known bleeding disorder or clotting disorders, no known family history of bleeding or clotting disorders. Code Status Full Code Discussed Condition With Will discuss with Dr. Darling Discussed with Dr. Diaz Problem List: (1) Left leg DVT ICD Codes: I82.402 - Acute embolism and thrombosis of unspecified deep veins of left lower extremity Status: Acute Plan: 42 year old presents with provoked first time DVT, no prior history of blood clots, no known bleeding disorder or clotting disorders, no known family history of bleeding or clotting disorders. Was initially placed on Xarelto, but plans to undergo a neurosurgical procedure for her lumbar disc herniation with neurological signs and Warfarin would be a more appropriate agent due to its reversibility. - Will start Lovenox therapeutic at 95 mg q12hrs - Start Coumadin at 5 mg daily, monitor INR - Target INR of 2.5 (range 2 to 3). - Will require anticoagulation at least 3 months. (2) Hypothyroidism ICD Codes: E03.9 - Hypothyroidism, unspecified Status: Chronic Plan: - Continue levothyroxine 100 mcg daily (3) Lumbar disc herniation with radiculopathy ICD Codes: M51.16 - Intervertebral disc disorders with radiculopathy, lumbar region Status: Chronic Plan: Severe lumbar disc herniation with radiculopathy, weakness in left leg. - Pain management: Tylenol for pain 1-2, [place] 5-325 for pain 3-5, [place] 10-325 for pain 6-10, morphine for breakthrough pain. Continue Gabapentin 300 mg daily , can increase as needed. Monitor for sedation. - Follow up with neurosurgery as an outpatient. (4) Nutrition, metabolism, and development symptoms ICD Codes: R63.8 - Other symptoms and signs concerning food and fluid intake Status: Acute Plan: PO fluids Regular diet Monitor INR Problem Qualifiers (1) Left leg DVT: Dmitriy Verduzco MD R3 May 12, 2017 17:18
[2017-05-12] MEDS ORDERED: SENNOSIDES 8.6 MG TAB PO PRN (18:15)
[2017-05-12] MEDS ORDERED: MORPHINE SULFATE 4 MG/ML INJ IV PUSH PRN (18:15)
[2017-05-12] MEDS ORDERED: MAGNESIUM HYDROXIDE SUSP 30 ML CUP PO PRN (18:15)
[2017-05-12] MEDS ORDERED: SODIUM CHLORIDE 0.9% FLUSH 10 ML FLUSH IV FLUSH PRN (18:15)
[2017-05-12] MEDS ORDERED: LACTULOSE SYRUP 20 GM/30 ML CUP PO PRN (18:15)
[2017-05-12] MEDS ORDERED: NALOXONE HCL 0.4 MG/ML AMP IV PUSH PRN ×2 (18:15)
[2017-05-12] MEDS ORDERED: ONDANSETRON HCL 4 MG/2 ML VIAL IV PUSH PRN (18:15)
[2017-05-12] MEDS ORDERED: ACETAMINOPHEN 325 MG TAB PO PRN (18:15)
[2017-05-12] MEDS ORDERED: BISACODYL 10 MG SUPP RECTAL PRN (18:15)
[2017-05-12] MEDS: WARFARIN SOD 5 MG TAB PO SCH (19:55)
[2017-05-12] MEDS: DOCUSATE SODIUM 50 MG/SENNA 8.6 MG TAB PO SCH (19:55)
[2017-05-12] MEDS: ESCITALOPRAM OXALATE 10 MG TAB PO SCH (19:55)
[2017-05-12] MEDS: ENOXAPARIN SODIUM 100 MG/ML SYRINGE SQ SCH (19:55)
[2017-05-12] MEDS: SODIUM CHLORIDE 0.9% FLUSH 10 ML FLUSH IV FLUSH SCH (19:58)
[2017-05-12 21:07] LABS: INTERNATIONAL NORMALIZED RATIO 0.9 RATIO; PROTHROMBIN TIME - PATIENT 10.1 SEC (9.8-11.6)
[2017-05-12 21:41] VITALS: BP 129/71; PULSE 75; RESP 17; TEMP 97.9; O2SAT 97
[2017-05-12] MEDS: ACETAMINOPHEN/HYDROcodone 325 MG/5 MG TAB PO PRN (21:43)
[2017-05-12 23:54] VITALS: BP 114/70; PULSE 70; RESP 16; TEMP 97.9; O2SAT 95
[2017-05-13] VITALS (7 sets, daily range): BP systolic 117–128; BP diastolic 69–82; PULSE 67–83; RESP 16–18; TEMP 96.7–97.9; O2SAT 96–100
[2017-05-13] MEDS: LEVOTHYROXINE SODIUM 100 MCG TAB PO SCH (05:35)
[2017-05-13] MEDS: ENOXAPARIN SODIUM 100 MG/ML SYRINGE SQ SCH ×2 (07:53→20:58)
[2017-05-13] MEDS: valACYclovir HCL 500 MG TAB PO SCH (07:53)
[2017-05-13] MEDS: SODIUM CHLORIDE 0.9% FLUSH 10 ML FLUSH IV FLUSH SCH ×2 (07:54→20:58)
[2017-05-13] MEDS: GABAPENTIN 300 MG CAP PO SCH (07:54)
[2017-05-13] MEDS: METOPROLOL TARTRATE 50 MG TAB PO SCH (07:54)
[2017-05-13] MEDS: DOCUSATE SODIUM 50 MG/SENNA 8.6 MG TAB PO SCH ×2 (07:54→20:58)
[2017-05-13 08:01] LABS: ALBUMIN 3.2 GM/DL (3.4-5.0); ALKALINE PHOSPHATASE 74 U/L (45-117); ALT (GPT) 27 U/L (10-53); AST (GOT) 20 U/L (15-37); BICARBONATE 25.7 MEQ/L (21.0-32.0); BLOOD UREA NITROGEN 8 MG/DL (7-18); CALCIUM 8.5 MG/DL (8.5-10.1); CHLORIDE 105 MEQ/L (98-107); CREATININE 0.67 MG/DL (0.50-1.00); GLOMERULAR FILTRATION RATE 97 ML/MIN (>89); GLUCOSE,RANDOM 81 MG/DL (74-106); SODIUM (NA) 139 MEQ/L (136-145); TOTAL BILIRUBIN ADULT 0.6 MG/DL (0.2-1.0); TOTAL PROTEIN 6.6 GM/DL (6.4-8.2)
[2017-05-13] MEDS: ACETAMINOPHEN/HYDROcodone 325 MG/5 MG TAB PO PRN ×3 (08:01→21:01)
--- NOTE | 2017-05-13 12:18 | HHI.FPPN ---
Subjective Remarks No acute events. No shortness of breath or chest pain. No nausea, vomiting, diarrhea. Right lower leg remains stable from admission with some swelling and erythema. Back pain improving with pain regimen but still significant with left leg weakness. (Dmitriy Verduzco MD R3) Objective Vitals Vital Signs Date Time Temp Pulse Resp B/P (MAP) Pulse Ox O2 Delivery O2 Flow Rate FiO2 05/13/17 08:00 96.7 76 18 117/71 (86) 96 05/13/17 07:15 68 05/13/17 03:45 97.0 83 17 117/80 (92) 96 05/12/17 23:54 97.9 70 16 114/70 (85) 95 05/12/17 21:41 97.9 75 17 129/71 (90) 97 05/12/17 16:30 98.3 82 24 156/98 (117) 96 I/O 05/12/17 05/12/17 05/12/17 05/13/17 05/13/17 05/13/17 07:00 15:00 23:00 07:00 15:00 23:00 Intake Total 680 ml 480 ml Output Total 100 ml Balance 580 ml 480 ml Intake Oral 680 ml 480 ml Output Urine Total 100 ml # Voids 1 1 # Bowel Movements 1 (Dmitriy Verduzco MD R3) Result Diagram: 05/13/17 0500 Objective Remarks General: Sitting up in bed, no distress Skin: No rashes or lesions HEENT: Normocephalic, no conjunctivitis, no nasal discharge, normal pharynx Neck: No thyromegaly CV: RRR, no murmurs, rubs, or gallops, regular pulses Lungs: CTAB, no wheezing, rales, or rhonchi Abdomen: Soft, nontender, non-distended Ext: Left lower extremity is swollen, mildly erythematous, positive Kerry's sign , tense and painful in the calf muscle. Appears stable from yesterday. Thigh is not tender to palpation or swollen or tense. Right leg is normal Neuro: Pain in the left lower back with palpation, 4/5 strength in the left lower extremity with hip flexion, knee extension, somewhat improved pain from yesterday with pain medications (Dmitriy Verduzco MD R3) A/P Assessment and Plan 42 year old presents with provoked first time DVT, no prior history of blood clots, no known bleeding disorder or clotting disorders, no known family history of bleeding or clotting disorders. Discharge Planning Pending therapeutic INR, stable vital signs (Dmitriy Verduzco MD R3) Attending Attestation Medical rounds were performed with Dr Aleshia Verduzco, Patients admission and hospital course were discussed in detail, Patient was seen and examined, Agree with the contents of this note, See Orders. (Eric Darling MD) Problem List: (1) Left leg DVT ICD Codes: I82.402 - Acute embolism and thrombosis of unspecified deep veins of left lower extremity Status: Acute Plan: 42 year old presents with provoked first time DVT, no prior history of blood clots, no known bleeding disorder or clotting disorders, no known family history of bleeding or clotting disorders. Was initially placed on Xarelto, but plans to undergo a neurosurgical procedure for her lumbar disc herniation with neurological signs and Warfarin would be a more appropriate agent due to its reversibility. - Lovenox therapeutic at 100 mg q12hrs - Coumadin at 5 mg daily, monitor INR - Target INR of 2.5 (range 2 to 3). - Will require anticoagulation at least 3 months. (2) Hypothyroidism ICD Codes: E03.9 - Hypothyroidism, unspecified Status: Chronic Plan: - Continue levothyroxine 100 mcg daily (3) Lumbar disc herniation with radiculopathy ICD Codes: M51.16 - Intervertebral disc disorders with radiculopathy, lumbar region Status: Chronic Plan: Severe lumbar disc herniation with radiculopathy, weakness in left leg. - Pain management: Tylenol for pain 1-2, [place] 5-325 for pain 3-5, [place] 10-325 for pain 6-10, morphine for breakthrough pain. Continue Gabapentin 300 mg daily , can increase as needed. Monitor for sedation. - Follow up with neurosurgery as an outpatient. (4) Nutrition, metabolism, and development symptoms ICD Codes: R63.8 - Other symptoms and signs concerning food and fluid intake Status: Acute Plan: PO fluids Regular diet Monitor INR (Dmitriy Verduzco MD R3) Problem Qualifiers (1) Left leg DVT: Dmitriy Verduzco MD R3 May 13, 2017 12:18 Eric Darling MD May 17, 2017 14:05
[2017-05-13] MEDS: WARFARIN SOD 5 MG TAB PO SCH (15:10)
[2017-05-13] MEDS: ESCITALOPRAM OXALATE 10 MG TAB PO SCH (20:58)
[2017-05-14] VITALS (7 sets, daily range): BP systolic 109–129; BP diastolic 60–73; PULSE 64–86; RESP 16–18; TEMP 96.9–98.4; O2SAT 95–98
[2017-05-14] MEDS: LEVOTHYROXINE SODIUM 100 MCG TAB PO SCH (05:42)
[2017-05-14] MEDS: DOCUSATE SODIUM 50 MG/SENNA 8.6 MG TAB PO SCH ×2 (08:45→20:42)
[2017-05-14] MEDS: valACYclovir HCL 500 MG TAB PO SCH (08:45)
[2017-05-14] MEDS: GABAPENTIN 300 MG CAP PO SCH (08:46)
[2017-05-14] MEDS: METOPROLOL TARTRATE 50 MG TAB PO SCH (08:46)
[2017-05-14] MEDS: ACETAMINOPHEN/HYDROcodone 325 MG/10 MG TAB PO PRN ×3 (08:46→22:24)
[2017-05-14] MEDS: ENOXAPARIN SODIUM 100 MG/ML SYRINGE SQ SCH ×2 (08:47→20:42)
--- NOTE | 2017-05-14 11:07 | HHI.FPPN ---
Subjective Remarks No chest pain or shortness of breath. No abdominal pain, nausea, vomiting, or diarrhea. Left calf swelling and tenderness is stable, same as yesterday. Back pain and sciatic symptoms improved with pain medication. INR still 1.0, increased Coumadin to 10 mg today. Objective Vitals Vital Signs Date Time Temp Pulse Resp B/P (MAP) Pulse Ox O2 Delivery O2 Flow Rate FiO2 05/14/17 08:00 96.9 81 18 129/68 (88) 98 05/14/17 03:50 97.3 86 16 116/73 (87) 96 05/14/17 00:40 97.0 82 16 118/60 (79) 96 05/13/17 20:00 77 05/13/17 19:35 96.7 71 16 118/82 (94) 100 05/13/17 16:00 96.8 69 18 119/69 (86) 98 05/13/17 12:00 97.9 67 17 128/74 (92) 98 I/O 05/13/17 05/13/17 05/13/17 05/14/17 05/14/17 05/14/17 07:00 15:00 23:00 07:00 15:00 23:00 Intake Total 480 ml 620 ml 240 ml Balance 480 ml 620 ml 240 ml Intake Oral 480 ml 620 ml 240 ml # Voids 1 4 2 2 # Bowel Movements 0 0 Result Diagram: 05/13/17 0500 Objective Remarks General: Sitting up in bed, no distress Skin: No rashes or lesions HEENT: Normocephalic, no conjunctivitis, no nasal discharge, normal pharynx Neck: No thyromegaly CV: RRR, no murmurs, rubs, or gallops, regular pulses Lungs: CTAB, no wheezing, rales, or rhonchi Abdomen: Soft, nontender, non-distended Ext: Left lower extremity is swollen, mildly erythematous, positive Kerry's sign , tense and painful in the calf muscle. Continuing to appear stable. Thigh is not tender to palpation or swollen or tense. Right leg is normal Neuro: Pain in the left lower back with palpation, 4/5 strength in the left lower extremity with hip flexion, knee extension. Pain significantly improved with pain medication. A/P Assessment and Plan 42 year old presents with provoked first time DVT, no prior history of blood clots, no known bleeding disorder or clotting disorders, no known family history of bleeding or clotting disorders. Discharge Planning Pending therapeutic INR, stable vital signs Problem List: (1) Left leg DVT ICD Codes: I82.402 - Acute embolism and thrombosis of unspecified deep veins of left lower extremity Status: Acute Plan: 42 year old presents with provoked first time DVT, no prior history of blood clots, no known bleeding disorder or clotting disorders, no known family history of bleeding or clotting disorders. Was initially placed on Xarelto, but plans to undergo a neurosurgical procedure for her lumbar disc herniation with neurological signs and Warfarin would be a more appropriate agent due to its reversibility. - Lovenox therapeutic at 100 mg q12hrs - Coumadin at 5 mg daily, increased to 10 mg on 05/14. - Target INR of 2.5 (range 2 to 3). - Will require anticoagulation at least 3 months for first time provoked DVT. (2) Hypothyroidism ICD Codes: E03.9 - Hypothyroidism, unspecified Status: Chronic Plan: - Continue levothyroxine 100 mcg daily (3) Lumbar disc herniation with radiculopathy ICD Codes: M51.16 - Intervertebral disc disorders with radiculopathy, lumbar region Status: Chronic Plan: Severe lumbar disc herniation with radiculopathy, weakness in left leg. - Pain management: Tylenol for pain 1-2, [place] 5-325 for pain 3-5, [place] 10-325 for pain 6-10, morphine for breakthrough pain. Continue Gabapentin 300 mg daily , can increase as needed. Monitor for sedation. - Follow up with neurosurgery as an outpatient. (4) Nutrition, metabolism, and development symptoms ICD Codes: R63.8 - Other symptoms and signs concerning food and fluid intake Status: Acute Plan: PO fluids Regular diet Monitor INR Problem Qualifiers (1) Left leg DVT: Dmitriy Verduzco MD R3 May 14, 2017 11:07
[2017-05-14] MEDS ORDERED: WARFARIN SOD 10 MG TAB PO SCH (16:00)
[2017-05-14] MEDS: ESCITALOPRAM OXALATE 10 MG TAB PO SCH (20:42)
[2017-05-14] MEDS: SODIUM CHLORIDE 0.9% FLUSH 10 ML FLUSH IV FLUSH SCH (20:47)
[2017-05-15] VITALS (7 sets, daily range): BP systolic 110–138; BP diastolic 64–78; PULSE 67–76; RESP 16–18; TEMP 96.6–97.8; O2SAT 97–100
[2017-05-15] MEDS: LEVOTHYROXINE SODIUM 100 MCG TAB PO SCH (06:00)
[2017-05-15] MEDS: ACETAMINOPHEN/HYDROcodone 325 MG/10 MG TAB PO PRN ×2 (06:07→16:42)
[2017-05-15 07:34] LABS: INTERNATIONAL NORMALIZED RATIO 1.1 RATIO; PROTHROMBIN TIME - PATIENT 12.6 SEC (9.8-11.6)
[2017-05-15] MEDS: ENOXAPARIN SODIUM 100 MG/ML SYRINGE SQ SCH (08:31)
[2017-05-15] MEDS: METOPROLOL TARTRATE 50 MG TAB PO SCH (08:32)
[2017-05-15] MEDS: GABAPENTIN 300 MG CAP PO SCH (08:32)
[2017-05-15] MEDS: SODIUM CHLORIDE 0.9% FLUSH 10 ML FLUSH IV FLUSH SCH ×2 (08:32→20:42)
[2017-05-15] MEDS: DOCUSATE SODIUM 50 MG/SENNA 8.6 MG TAB PO SCH ×2 (08:32→20:41)
[2017-05-15] MEDS: valACYclovir HCL 500 MG TAB PO SCH (08:32)
--- NOTE | 2017-05-15 10:18 | HHI.FPPN ---
Subjective Remarks Mrs. Dudley was afebrile with stable vital signs overnight. Patient reports that she is feeling ok; no shortness of breath or chest pain. Patient reports chest pain earlier during hospitalization which she attributed secondary to anxiety. Patient has persistent L calf pain. Patient also has persistent back pain radiating to L leg; patient reports that she is unable to walk for > 5 minutes due to pain severity. Normal bowel movements and urination. Patient requests time table regarding planned intervention for back pain due to its severity. (Trung Rodriguez MD, R3) Objective Vitals Vital Signs Date Time Temp Pulse Resp B/P (MAP) Pulse Ox O2 Delivery O2 Flow Rate FiO2 05/15/17 07:39 96.7 73 18 111/72 (85) 97 05/15/17 07:02 16 05/15/17 03:15 96.7 69 17 110/64 (79) 98 05/14/17 23:45 97.4 69 18 112/67 (82) 97 05/14/17 19:03 98.4 79 18 117/72 (87) 96 05/14/17 16:00 97.7 70 17 109/66 (80) 95 05/14/17 12:00 97.3 64 18 111/68 (82) 96 I/O 05/14/17 05/14/17 05/14/17 05/15/17 05/15/17 05/15/17 07:00 15:00 23:00 07:00 15:00 23:00 Intake Total 240 ml 480 ml 480 ml Balance 240 ml 480 ml 480 ml Intake Oral 240 ml 480 ml 480 ml # Voids 2 3 3 2 # Bowel Movements 0 0 0 (Trung Rodriguez MD, R3) Result Diagram: 05/13/17 0500 Objective Remarks General: Sitting up in bed, no distress Skin: No rashes or lesions CV: RRR, no murmurs. Normal lower extremity perfusion Lungs: CTAB, no wheezing. Normal rate Abdomen: Soft, nontender, non-distended Ext: Left lower extremity is swollen, calf painful to palpation. No visible erythema relative to RLE. Neuro: Grossly normal CN. Grossly normal peripheral motor/sensory function, but examination of back and lower extremity strength not performed due to patient pain (Trung Rodriguez MD, R3) A/P Assessment and Plan 42 year old female presents with DVT (presumed secondary to immobility; no prior history of thrombotic disease, bleeding disorder/clotting disorders, or family history of thrombotic disease: (Trung Rodriguez MD, R3) Attending Attestation Patient seen and examined. Case reviewed and discussed with the resident team. Agree with plan of care as discussed with me and documented in the resident note. she can only have this procedure in [place] and must be transferred there. Discussed with her that she could consider seeing hematology as she has the clotting problem with the DVT plus the need for procedures on her back (Akanksha Shannon MD) Problem List: (1) Left leg DVT ICD Codes: I82.402 - Acute embolism and thrombosis of unspecified deep veins of left lower extremity Status: Acute Plan: 42 year old with first time LLE DVT, DVT (presumed secondary to immobility; no prior history of thrombotic disease, bleeding disorder/clotting disorders, or family history of thrombotic disease). Difficulty regarding coagulation regarding planned epidural steroid injection (due to severity of pain) Anticoagulation monitoring: INR: 1.1 (05/15) <- 1.0 (05/14) <- 1.0 (05/13) <- 0.9 (05/12) Patient has received Warfarin 5mg x2 doses (05/12 and 05/13), and received Warfarin 10mg x1 dose (05/14) Patient has received Enoxaparin 100mg BID 05/12- 05/15 with last dose received 05/15 at 0831. Due to planned epidural steroid injection tomorrow: -Discontinuation of Lovenox for 24 hrs prior to planned procedure should be adequate to assure lack of risk of bleeding complication -Some concern still exists for delayed effect of Warfarin causing INR elevation prior to procedure (not chronically on Warfarin with INR of 1.1 but last dose was <7 days prior to procedure) -Will check PT/PTT/INR 05/16; DELL must be deferred if INR on 05/16 is >1.2 -Will consider starting therapeutic heparin at 12 hrs after last Lovenox dose vs waiting 24hrs prior to DELL -If started, will need to discontinue Heparin >4 hrs prior to planned DELL and confirm PTT <40 -Will need to discuss with patient possible benefits of Hematology referral after discharge to evaluate potential risks for additional thromboembolic disease -Planned duration of treatment 3-6 months (2) Lumbar disc herniation with radiculopathy ICD Codes: M51.16 - Intervertebral disc disorders with radiculopathy, lumbar region Status: Chronic Plan: Impression: Severe lumbar disc herniation with radiculopathy, weakness in left leg. L5- S1 retrolisthesis and diffuse annular disruption per EMR NS documentation. Known to Dr. Herman and Dr. Harvey; planned DELL 05/16 and potential plans for fusion vs. discectomy - Pain management: Tylenol for pain 1-2, [place] 5-325 for pain 3-5, [place] 10-325 for pain 6-10, morphine for breakthrough pain. -Continue Gabapentin 300 mg daily, can increase as needed. Monitor for sedation. - Per discussion with Dr. Shannon and Dr. Harvey, Dr. Herman consulted (planned DELL already as an outpatient tomorrow) -Will transfer patient to [place] -Will have to confirm normal PTT and INR the morning of 05/16 and stop Heparin >4 hrs prior to DELL (3) Hypothyroidism ICD Codes: E03.9 - Hypothyroidism, unspecified Status: Chronic Plan: - Continue levothyroxine 100 mcg daily (4) Nutrition, metabolism, and development symptoms ICD Codes: R63.8 - Other symptoms and signs concerning food and fluid intake Status: Acute Plan: PO fluids Regular diet Monitor INR (Trung Rodriguez MD, R3) Problem Qualifiers (1) Left leg DVT: Trung Rodriguez MD, R3 May 15, 2017 10:17 Akanksha Shannon MD May 18, 2017 14:22
[2017-05-15 18:06] LABS: HEMATOCRIT 42.1 % (35.0-46.0); HEMOGLOBIN 14.1 GM/DL (11.6-15.3); MEAN CELL VOLUME 89.5 FL (80.0-100.0); MEAN CORPUSCULAR HGB CONC 33.6 % (32.0-36.0); MEAN PLATELET VOLUME 7.6 FL (7.0-11.0); PLATELET COUNT 249 TH/MM3 (150-450); RED CELL DISTRIBUTION WIDTH 14.4 % (11.6-17.2); WHITE BLOOD COUNT 11.7 TH/MM3 (4.0-11.0)
[2017-05-15 18:19] LABS: INTERNATIONAL NORMALIZED RATIO 1.1 RATIO; PROTHROMBIN TIME - PATIENT 12.6 SEC (9.8-11.6)
[2017-05-15] MEDS ORDERED: HEPARIN-D5W 25,000 U/250 ML 250 ML IV PRN (20:00)
[2017-05-15] MEDS: ESCITALOPRAM OXALATE 10 MG TAB PO SCH (20:41)
[2017-05-16] VITALS: BP 116/65; PULSE 64; RESP 16; TEMP 97.1; O2SAT 98
[2017-05-16 04:00] VITALS: BP 131/80; PULSE 73; RESP 16; TEMP 97.5; O2SAT 99
[2017-05-16] MEDS: LEVOTHYROXINE SODIUM 100 MCG TAB PO SCH (05:05)
[2017-05-16 06:51] LABS: AUTOMATED NEUTROPHIL # 5.7 TH/MM3 (1.8-7.7); BASOPHIL % 0.5 % (0.0-2.0); EOSINOPHIL # 0.3 TH/MM3 (0-0.4); EOSINOPHIL % 3.5 % (0.0-4.0); HEMATOCRIT 41.5 % (35.0-46.0); HEMOGLOBIN 13.8 GM/DL (11.6-15.3); LYMPH % 29.8 % (9.0-44.0); LYMPHOCYTE # 2.7 TH/MM3 (1.0-4.8); MEAN CELL VOLUME 88.2 FL (80.0-100.0); MEAN CORPUSCULAR HEMOGLOBIN 29.4 PG (27.0-34.0); MEAN CORPUSCULAR HGB CONC 33.4 % (32.0-36.0); MEAN PLATELET VOLUME 7.8 FL (7.0-11.0); MONO % 5.6 % (0.0-8.0); MONOCYTE # 0.5 TH/MM3 (0-0.9); NEUT % 60.6 % (16.0-70.0); PLATELET COUNT 225 TH/MM3 (150-450); RED CELL DISTRIBUTION WIDTH 13.8 % (11.6-17.2); WHITE BLOOD COUNT 9.2 TH/MM3 (4.0-11.0)
[2017-05-16 06:53] LABS: INTERNATIONAL NORMALIZED RATIO 1.1 RATIO; PROTHROMBIN TIME - PATIENT 12.7 SEC (9.8-11.6)
[2017-05-16 06:59] LABS: BICARBONATE 27.9 MEQ/L (21.0-32.0); CALCIUM 8.8 MG/DL (8.5-10.1)
[2017-05-16 07:03] LABS: CREATININE 0.62 MG/DL (0.50-1.00)
[2017-05-16 08:00] VITALS: BP 128/84; PULSE 66; RESP 18; TEMP 98; O2SAT 96
[2017-05-16] MEDS ORDERED: ENOX100P SQ (09:08)
[2017-05-16] MEDS ORDERED: COUM5TAB PO (09:08)
[2017-05-16] MEDS: SODIUM CHLORIDE 0.9% FLUSH 10 ML FLUSH IV FLUSH SCH (09:19)
[2017-05-16] MEDS: GABAPENTIN 300 MG CAP PO SCH (09:20)
[2017-05-16] MEDS: METOPROLOL TARTRATE 50 MG TAB PO SCH (09:20)
[2017-05-16] MEDS: DOCUSATE SODIUM 50 MG/SENNA 8.6 MG TAB PO SCH (09:20)
[2017-05-16] MEDS: valACYclovir HCL 500 MG TAB PO SCH (09:20)
[2017-05-16] MEDS ORDERED: PROPOFOL 200 MG/20 ML AMP IV ONE (10:26)
[2017-05-16] MEDS ORDERED: TRIAMCINOLONE ACETONIDE 40 MG/ML VIAL NERV BLOCK ONE (10:26)
[2017-05-16] MEDS ORDERED: MIDAZOLAM HCL 2 MG/2 ML VIAL IV ONE (10:26)
[2017-05-16] MEDS ORDERED: LIDOCAINE HCL 1% PF 30 ML VIAL EPIDURAL ONE (10:26)
--- NOTE | 2017-05-16 10:53 | M6 ---
cc: LARY HERMAN M.D. DATE: 05/16/2017 DATE OF : 1975 PROCEDURE Fluoroscopically guided left L5-S1 and left S1 transforaminal epidural steroid injection. PROCEDURE NOTE History and physical was completed and signed. Consent was signed. Procedure site was marked. Medications were listed and reconciled. Pain score was recorded. Allergies were noted. Timeout was taken. Fluoroscopy time was recorded where applicable. Sedation was administered or directed by Dr. Herman. The patient was given oxygen. The patient was monitored by a registered nurse. Total procedure time was greater than 15 minutes. An IV was started, blood pressure cuff, pulse oximeter and EKG were applied. The patient was placed in the prone position on a Tyler table, sedated with small amounts of propofol titrated to effect. Vital signs were monitored and remained stable throughout the procedure. The lumbar area was prepped with alcohol and 10% Betadine solution, draped with sterile drapes. Fluoroscopy was used in both the AP and lateral projection to clearly visualize the left L5-S1 neural foramen and left S1 neural foramen. Separate sterile 3-1/2 inch, 22-gauge Chiba needles were advanced into the dorsal aspect of each foramen. There was negative aspiration for blood or any other type of fluid and at each location the patient was given 3 mL of 1% Xylocaine, 3 mL of Omnipaque and 40 mg of Kenalog. Following the procedure the patient was taken to the recovery room with stable vital signs, neurologically intact. She will be evaluated immediately and with follow-up to determine if she has a subjective decrease in her usual pain and a corresponding objective increase in her functional capabilities. W. Cullen Herman MD [facility]/OMID /10:44 AM /10:55 AM
[2017-05-16 12:00] VITALS: BP 119/69; PULSE 74; RESP 16; TEMP 98.4; O2SAT 95
--- NOTE | 2017-05-16 12:45 | HHI.DS ---
Discharge Summary Admission Date May 12, 2017 at 18:12 Discharge Date: May 16, 2017 Admitting Diagnosis (1) Left leg DVT ICD Code: I82.402 - Acute embolism and thrombosis of unspecified deep veins of left lower extremity Status: Acute (2) Lumbar disc herniation with radiculopathy ICD Code: M51.16 - Intervertebral disc disorders with radiculopathy, lumbar region Status: Chronic Procedures Fluoroscopically guided left L5-S1 and left S1 transforaminal epidural steroid injection. Brief History - From Admission 42 year old female with a history of DVT in her left leg diagnosed on 05/11/17. She was given a one time dose of Xarelto and sent home at that time. She is having increased swelling of the left leg with warmth and pain that is increasing. She took the Xarelto once but did not continue it based on recommendations from her neurosurgeon. She has severe disc herniation with sciatica and weakness affecting the left leg with plans to undergo surgery, but her neurosurgeon prefers her to be on Coumadin due to the reversibility of the agent. Per the patient, she travelled 5 hours on a plane to [place] in October. Besides that, her severe sciatica and left leg weakness has caused her to be much more immobile than usual. She has not been moving around much and believes this contributed to her blood clot. She reports no known family history of clotting disorders. She has no history of miscarriages (has never been ) and no prior history of blood clots. Her symptoms started one week ago with increasing redness, warmth, and swelling in her left leg, with ultrasound demonstrating an occlusive thrombus in the distal superficial femoral vein and left peroneal vein. The redness and swelling has increased some since she was in the hospital yesterday evening. She has only taken one dose of her Xarelto and discontinued it. She has no chest pain or shortness of breath. She has no pain on inspiration. No abdominal pain, nausea, vomiting, or diarrhea. No symptoms in the right leg. CBC/BMP: 05/16/17 0555 05/16/17 0555 Significant Findings Laboratory Tests Test 05/14/17 03:45 05/15/17 06:18 05/15/17 17:23 05/16/17 03:15 Prothrombin Time 12.6 SEC (9.8-11.6) 12.6 SEC (9.8-11.6) White Blood Count 11.7 TH/MM3 (4.0-11.0) Activated Partial Thromboplast Time 110.8 SEC (24.3-30.1) Test 05/16/17 05:55 Prothrombin Time 12.7 SEC (9.8-11.6) Activated Partial Thromboplast Time 59.3 SEC (24.3-30.1) PE at Discharge GENERAL: Well-nourished, well-developed pleasant female patient. SKIN: Warm and dry. HEAD: Normocephalic. EYES: No scleral icterus. No injection or drainage. NECK: Supple, trachea midline. No JVD or lymphadenopathy. CARDIOVASCULAR: Regular rate and rhythm without murmurs, gallops, or rubs. RESPIRATORY: Breath sounds equal bilaterally. No accessory muscle use. GASTROINTESTINAL: Abdomen soft, non-tender, nondistended. EXTREMITIES: Trace pedal edema bilaterally. No erythema or palpable cords. NEUROLOGICAL: Awake, alert, and oriented x 3. Non-focal. Hospital Course Patient was admitted to the hospital. Her INR was subtherapeutic. Patient had significant lower back pain. She had been scheduled for an epidural steroid injection as an outpatient. Because of the needing to be on blood thinner, she needed to be on a heparin drip prior to this procedure. Patient was transferred to the [facility] with Dr. Herman could perform the procedure. Patient underwent fluoroscopically guided left L5 to S1 and left S1 transforaminal epidural steroid injection today. She has minimal pain in the lower back. She still has some tenderness along the lateral aspect of her left lower extremity. She is ambulating well. She would like to go home. Patient states that her mother is a retired nurse and can do the Lovenox injections for her. She declines home health care. Patient is given a prescription for Lovenox and Coumadin. Patient is to start her Lovenox injection tomorrow which is 24 hours after her procedure. Patient has been given Coumadin teaching. She understands to get her blood drawn within the next 2 days and call her PCP at the [facility] for adjustments in her Coumadin dosing. Patient was given a lab slip which is cc'ed to her PCP Dr. Frances Ramsay; she is instructed to call the [facility] for the results Patient will need to be on anticoagulation for 3 months due to this provoked DVT. Patient voices understanding to the plan. Pt Condition on Discharge: Stable Discharge Disposition: Discharge Home Discharge Time: > 30 minutes Discharge Instructions DIET: Follow Instructions for: Coumadin (Warfarin) Diet Activities you can perform: Regular-No Restrictions Follow up Referrals: PCP Follow-up - 2-3 Days New Medications: Enoxaparin Inj (Lovenox Inj) 100 Mg/Ml Syr 100 MG SQ BID for Blood Clot Prevention for 10 Days, SYRINGE 0 Refills Warfarin (Coumadin) 5 Mg Tab 5 MG PO DAILY for Blood Clot Prevention, #30 TAB 0 Refills Continued Medications: Acetaminophen (Tylenol) 325 Mg Tab 1000 MG PO BID, TAB 0 Refills Escitalopram (Lexapro) 10 Mg Tab 10 MG PO HS, #30 TAB 6 Refills Gabapentin (Gabapentin) 300 Mg Cap 300 MG PO TID for Pain Management, #90 CAP 0 Refills Hydrocodone-Acetaminophen (Lortab) 5-325 Mg Tab 1 TAB PO Q4H PRN for PAIN, #20 TAB 0 Refills Levothyroxine (Levothyroxine) 100 Mcg Tab 100 MCG PO DAILY for Thyroid, TAB 0 Refills Metoprolol Tartrate (Metoprolol Tartrate) 50 Mg Tab 50 MG PO DAILY, #30 TAB 6 Refills Valacyclovir (Valtrex) 1 Gm Tab 1000 MG PO DAILY for Mgmt Viral Infection, #30 TAB 0 Refills Valacyclovir (Valacyclovir) 1,000 Mg Tab 1000 MG PO DAILY for Mgmt Viral Infection, #30 TAB 0 Refills Estrella Thomson MD May 16, 2017 12:44
[2017-05-16] MEDS: ACETAMINOPHEN/HYDROcodone 325 MG/10 MG TAB PO PRN (13:10)
[2017-05-16 14:10] VITALS: RESP 18
== END 2017-05-16 15:20 | disposition home or self-care (01) | DRG 301 ==
LOC: NEPHCDU 15:51 → OBSVTOIN 18:12 → N06A 21:25 → PH3A 05-15 18:45
PROVIDERS: ADMIT Family Medicine; ATTEND Family Medicine
PROC: 3E0S33Z Introduction of Anti-inflammatory into Epidural Space, Percutaneous Approach (ICD-10-PCS; principal; 2017-05-16)
DX: I82.412 Acute embolism and thrombosis of left femoral vein (principal); I10 Essential (primary) hypertension; E03.9 Hypothyroidism, unspecified; F41.9 Anxiety disorder, unspecified; M51.16 Intervertebral disc disorders with radiculopathy, lumbar region; I82.4Z2 Acute embolism and thrombosis of unspecified deep veins of left distal lower extremity
CPT/HCPCS: 64483; 64484; 80048; 80053; 82272; 85025; 85027; 85610; 85730; 99152; J1644; J1650; J2250; J2270; J2405; J3301

== ENCOUNTER → 2017-05-18 | Outpatient (CLI) | payer OTHER ==
[~2017-05-18] MED LIST changes: +BENA25TA6; +CETI-1 PO; +CIPR-9 PO; +COUM5TAB PO; -CYCL10TA PO; +ENOX100P SQ; +HYDR-3516 PO; +LACTCAP8 PO; +LEVO.1 PO; +LIOT25TA3 PO; +LYSI500T; -NORC5TAB PO; +STOO100T; -TIZA4CAP3 PO; -TRAM50TA PO; +VITACAP7 PO; +WOMETAB5; -XARE15TA PO; -XARE20TA PO; -ZANT300T PO
[2017-05-18 15:55] LABS: PROTHROMBIN TIME - PATIENT 11.2 SEC (9.8-11.6)
== END ==
LOC: ELAB 11:23
PROVIDERS: ATTEND Family Medicine
DX: I82.402 Acute embolism and thrombosis of unspecified deep veins of left lower extremity (principal)
CPT/HCPCS: 36415; 85610

== ENCOUNTER → 2017-05-23 | Outpatient (CLI) | payer OTHER ==
[~2017-05-23] MED LIST changes: +GABA600T PO; -HYDR-3533 PO; +HYDR-3583 PO; -TYLE325T PO; -VALA1TAB PO; +XARE15TA PO; +XARE20TA PO
--- NOTE | 2017-05-23 10:09 | RADRPT ---
EXAM DATE/TIME: 05/23/2017 09:56 [facility] COMPARISON: No previous studies available for comparison. INDICATIONS : Evaluate for pneumonia, pneumothorax or communicable disease. Pre op back surgery 05-29-17. MEDICAL HISTORY : Hypertension. SURGICAL HISTORY : None. ENCOUNTER: Initial ACUITY: 1 day PAIN SCORE: 0/10 LOCATION: Bilateral chest FINDINGS: PA and lateral views of the chest demonstrate the lungs to be symmetrically aerated without evidence of mass, infiltrate or effusion. The cardiomediastinal contours are unremarkable. Osseous structure s are intact. CONCLUSION: Normal examination. Adilson Cameron Jr., MD on May 23, 2017 at 10:08 Board Certified Radiologist. This report was verified electronically.
[2017-05-23 10:10] LABS: HEMATOCRIT 41.1 % (35.0-46.0); MEAN CELL VOLUME 88.7 FL (80.0-100.0); MEAN CORPUSCULAR HGB CONC 33.8 % (32.0-36.0); PLATELET COUNT 268 TH/MM3 (150-450); RED BLOOD COUNT 4.63 MIL/MM3 (4.00-5.30); RED CELL DISTRIBUTION WIDTH 14.7 % (11.6-17.2); REVIEW FLAG FINAL; WHITE BLOOD COUNT 15.9 TH/MM3 (4.0-11.0)
[2017-05-23 10:12] LABS: APTT (PATIENT) 34.8 SEC (24.3-30.1); INTERNATIONAL NORMALIZED RATIO 1.1 RATIO; PROTHROMBIN TIME - PATIENT 12.7 SEC (9.8-11.6)
[2017-05-23 10:29] LABS: BICARBONATE 23.8 MEQ/L (21.0-32.0)
[2017-05-23 11:12] LABS: POTASSIUM 3.5 MEQ/L (3.5-5.1)
== END ==
LOC: CPRE 08:57
PROVIDERS: ATTEND Neurological Surgery
DX: Z01.811 Encounter for preprocedural respiratory examination (principal); Z01.812 Encounter for preprocedural laboratory examination; M51.26 Other intervertebral disc displacement, lumbar region; M54.16 Radiculopathy, lumbar region
CPT/HCPCS: 36415; 71020; 80048; 85027; 85610; 85730

== ENCOUNTER → 2017-05-26 | Outpatient (CLI) | payer OTHER ==
[~2017-05-26] MED LIST changes: -LEVO100T5 PO
[2017-05-26 14:10] LABS: BLOOD, URINE NEG (NEG); GLUCOSE,URINE NEG (NEG); KETONE, URINE NEG (NEG); NITRITE,URINE NEG (NEG); URINE COLOR YELLOW (YELLW/STRAW)
[2017-05-26 14:52] LABS: BACTERIA, URINE MANY /hpf; CALCIUM OXALATE CRYSTALS,URINE MOD /hpf; COMMENT (UR) CULTURE INDICATED; CULTURE IF INDICATED CULTURE INDICATED; MUCUS URINE MANY /lpf (OCC); RBC, URINE 0-3 /hpf (0-3); SQUAMOUS EPITHELIAL CELL URINE > 8 /hpf (0-5)
== END ==
LOC: CPRE 12:30
PROVIDERS: ATTEND Neurological Surgery
DX: Z01.812 Encounter for preprocedural laboratory examination (principal); R82.99 Other abnormal findings in urine; D72.829 Elevated white blood cell count, unspecified
CPT/HCPCS: 81001; 87086

== ENCOUNTER → 2017-05-29 | Day surgery (SDC) | payer OTHER ==
[~2017-05-29] VITALS: Ht 157.5 cm; Wt 96.7 kg
[~2017-05-29] MED LIST changes: +*MEPERIDINE 25 MG INJ VIAL PERIprocedural Use ONLY ONE; +*ONDANSETRON 4 MG VIAL PERIprocedural Use ONLY ONE; +*PROMETHAZINE 25 MG/ML VIAL PERIprocedural use ONLY ONE; +ACETAMINOPHEN 1000 MG/100 ML 100 ML IV ONE; +APREPITANT 40 MG CAP ONE; +BUPIVACAINE HCL PF 0.25% 30 ML VIAL ONE; +BUPIVACAINE LIPOSOME PF 1.3% 20 ML VIAL INFIL ONE; +BUPIVACAINE LIPOSOME PF 1.3% 20 ML VIAL ONE; +CHLORHEXIDINE GLUCONATE 2 % 1 PACK (2 CLOTHS) TOPICAL PRN; +DEXAMETHASONE SOD PHOS 4 MG/ML VIAL IV ONE; +DO NOT ADM ANY ANTICOAGULANT DRUGS PRN; +FAMOTIDINE 20 MG/2 ML VIAL ONE; +GELFOAM SIZE 100 ONE; +GENTAMICIN SULFATE 80 MG/2 ML VIAL ONE; +GLYCOPYRROLATE 1 MG/5 ML SYRINGE IV PUSH ONE; +LACTATED RINGER'S 1000 ML INJ 1,000 ML IV SCH; +LACTATED RINGER'S 1000 ML IV PRN; +LIDOCAINE HCL 1% PF 5 ML SYRINGE OTHER ONE; +METOPROLOL TARTRATE 25 MG TAB PO PRN; +MIDAZOLAM HCL 2 MG/2 ML VIAL IV ONE; +NEOSTIGMINE 3 MG/3 ML SYR IV ONE; +ONDANSETRON HCL 4 MG/2 ML VIAL IV ONE; +PHENYLEPH/NS 1000 MCG/10 ML SYR IV ONE; +POVIDONE IODINE 5% (ANTISEPSIS KIT) 4 APPLICATIONS EACH NARE PRN; +PROPOFOL 200 MG/20 ML AMP IV ONE; +ROCURONIUM INJ 50 MG/5 ML SYRINGE IV PUSH ONE; +SODIUM CHLORID 0.9% 500 ML IV PRN; +THROMBIN (TOPICAL) 5,000 UNIT VIAL ONE; +ceFAZolin INJ 1,000 MG VIAL IV ONE; +ePHEDrine/NS 25 MG/5 ML SYR IV ONE
[2017-05-29] MEDS: ceFAZolin 1,000 MG/NS 100 ML IV SCH ×4 (08:03→09:34)
[2017-05-29] MEDS: LIDOCAINE 1%/EPINEPHrine 1:100,000 SOLN 50 ML VIAL ONE (09:37)
--- NOTE | 2017-05-29 12:52 | PD.OP ---
Operative Report Date of Surgery: May 29, 2017 Preoperative Diagnosis: (1) Lumbar disc herniation with radiculopathy 1. L5-S1 herniated nucleus pulposus 2. Left S1 radiculopathy Postoperative Diagnosis: (1) Lumbar disc herniation with radiculopathy 1. L5-S1 herniated nucleus pulposus 2. Left S1 radiculopathy Procedure: Left L5 semi-hemilaminectomy Left L5-S1 discectomy-use of intraoperative high-power microscope magnification Anesthesia: General Surgeon: Edgar Harvey Metal Molder(s): Nery Chowdhury Operation and Findings: Findings: Large primarily subannular central to left L5-S1. Nucleus pulposus with a complete tear in the annulus just to the left of midline with protruding disc medial to the left S1 nerve root. Significant diffuse annular displacement Procedure in detail: The patient was brought into the operating room and general endotracheal anesthesia induced without difficulty. Ritchie catheter was placed. Knee-high sequential compression devices were placed. Lines were established by Anesthesia The patient was placed in prone position on the concentric Tyler table with the side bolsters and all extremities appropriately padded Appropriate timeout procedure was performed with all personal present and in agreement The lumbar region was shaved with clippers and sterilely prepped and draped. 1% Xylocaine with epinephrine was used for local infiltration over the incision site which was made just to the left of midline at the L5-S1 level. The incision was carried sharply down to the lumbodorsal fascia which was incised just adjacent to the spinous processes. Pradhan elevator was used for subperiosteal elevation of paraspinous musculature and fascia away from the lamina and spinous process of L5 and S1 on the left side. The deep self-retaining retractor was placed. The appropriate level was verified with intraoperative C-arm. The microscope was moved into place and used for the remainder of the procedure including the closure. The TPS drill with the 5 mm bone bur followed by the 3 mm Kerrison rongeur was used to remove the inferior aspect of the inferior left L5 lamina along with a small amount of the medial facet sufficient to gain access to the lateral recess without significant nerve root or thecal sac retraction. The ligamentum flavum was elevated away from the thecal sac and retracted with a 3-0 Vicryl suture temporarily. The Kerrison rongeur was used to decompress the left L5-S1 lateral recess, taking care to preserve the joint integrity. There was noted to be some instability of the L5-S1 facet. The exiting nerve root was traced down to the medial aspect of the inferior pedicle and traced back to the exit from the thecal sac. The thecal sac and exiting nerve root were then retracted gently medially revealing the underlying disc and annulus. The patient was noted to have a prominent subannular herniated nucleus pulposus which was significantly impinging on the overlying exiting nerve root and thecal sac. There was a complete tear through the annulus just to the left midline with protruding disc impinging on the S1 nerve root. The disc and annulus were incised with the 11 blade knife and discectomy performed with the pituitary biopsy forceps and the straight and angled curettes. Any loose pieces of disc material in the intervertebral disc space were carefully removed. The neural structures appeared well decompressed at the end of the procedure. Bleeding was carefully controlled with bone wax for the bone bleeding and bipolar forceps. There is no significant bleeding time of closure. No cerebrospinal fluid leakage was encountered. The closure was performed with 0 Vicryl interrupted for the deep and superficial fascia, with 3-0 Vicryl interrupted for the subcutaneous closure, and 4-0 Vicryl running for the subcuticular closure. The dressing of sterile Mastisol, Steri-Strips, and Primapore dressing was applied. The patient was taken to recovery room in stable condition. All counts were correct at the end of the case. No specimen was sent to pathology. Estimated blood loss was 90 cc . Edgar Harvey MD May 29, 2017 12:52
[2017-05-29 14:13] VITALS: BP 108/67; PULSE 80; RESP 18; TEMP 97.2; O2SAT 97
--- NOTE | 2017-05-29 20:26 | RADRPT ---
EXAM DATE/TIME: 05/29/2017 09:18 [facility] COMPARISON: No previous studies available for comparison. INDICATIONS : Lumbar spine L5-S1 laminectomy. OR. MEDICAL HISTORY : Hypertension. SURGICAL HISTORY : None. ENCOUNTER: Initial ACUITY: 1 day PAIN SCORE: Non-responsive. LOCATION: Lumbar L5-S1 FINDINGS: A single lateral view of the lower lumbar region is recorded digitally in the operating room using C- arm. Retractor and localization probe in place. CONCLUSION: Intraoperative image. Adilson Acosta MD on May 29, 2017 at 20:24 Board Certified Radiologist. This report was verified electronically.
== END | disposition home or self-care (01) ==
LOC: HSDC 06:11
PROVIDERS: ATTEND Neurological Surgery
DX: M51.16 Intervertebral disc disorders with radiculopathy, lumbar region (principal); I10 Essential (primary) hypertension
CPT/HCPCS: 00630; 63030; 72020; 76000; C9290; J0131; J0690; J1100; J1580; J2175; J2250; J2370; J2405; J2550; J2710; J3010; J7120; J8501

== ENCOUNTER 2017-06-03 08:06 | Observation (INO) | payer OTHER ==
[2017-06-03] VITALS (7 sets, daily range): BP systolic 112–145; BP diastolic 68–86; PULSE 69–85; RESP 16–18; TEMP 97.5–98.7; O2SAT 95–98
[~2017-06-03] VITALS: Ht 157.5 cm; Wt 100.0 kg
[~2017-06-03 08:06] MED LIST changes: -*MEPERIDINE 25 MG INJ VIAL PERIprocedural Use ONLY ONE; -*ONDANSETRON 4 MG VIAL PERIprocedural Use ONLY ONE; -*PROMETHAZINE 25 MG/ML VIAL PERIprocedural use ONLY ONE; -ACETAMINOPHEN 1000 MG/100 ML 100 ML IV ONE; -APREPITANT 40 MG CAP ONE; -BUPIVACAINE HCL PF 0.25% 30 ML VIAL ONE; -BUPIVACAINE LIPOSOME PF 1.3% 20 ML VIAL INFIL ONE; -BUPIVACAINE LIPOSOME PF 1.3% 20 ML VIAL ONE; -CHLORHEXIDINE GLUCONATE 2 % 1 PACK (2 CLOTHS) TOPICAL PRN; -DEXAMETHASONE SOD PHOS 4 MG/ML VIAL IV ONE; -DO NOT ADM ANY ANTICOAGULANT DRUGS PRN; -FAMOTIDINE 20 MG/2 ML VIAL ONE; -GABA600T PO; -GELFOAM SIZE 100 ONE; -GENTAMICIN SULFATE 80 MG/2 ML VIAL ONE; -GLYCOPYRROLATE 1 MG/5 ML SYRINGE IV PUSH ONE; -LACTATED RINGER'S 1000 ML INJ 1,000 ML IV SCH; -LACTATED RINGER'S 1000 ML IV PRN; -LIDOCAINE HCL 1% PF 5 ML SYRINGE OTHER ONE; -METOPROLOL TARTRATE 25 MG TAB PO PRN; -MIDAZOLAM HCL 2 MG/2 ML VIAL IV ONE; -NEOSTIGMINE 3 MG/3 ML SYR IV ONE; -ONDANSETRON HCL 4 MG/2 ML VIAL IV ONE; -PHENYLEPH/NS 1000 MCG/10 ML SYR IV ONE; -POVIDONE IODINE 5% (ANTISEPSIS KIT) 4 APPLICATIONS EACH NARE PRN; -PROPOFOL 200 MG/20 ML AMP IV ONE; -ROCURONIUM INJ 50 MG/5 ML SYRINGE IV PUSH ONE; -SODIUM CHLORID 0.9% 500 ML IV PRN; -THROMBIN (TOPICAL) 5,000 UNIT VIAL ONE; -XARE15TA PO; -XARE20TA PO; -ceFAZolin INJ 1,000 MG VIAL IV ONE; -ePHEDrine/NS 25 MG/5 ML SYR IV ONE
[2017-06-03] MEDS ORDERED: HYDROmorphone HCL PF 1 MG/ML VIAL IV PUSH ONE ×2 (09:00→11:30)
[2017-06-03] MEDS ORDERED: GADODIAMIDE PF 287 MG/ML 20 ML VIAL (for RAD MRI) IVCONTRAST ONE (09:07)
[2017-06-03] MEDS ORDERED: ONDANSETRON HCL 4 MG/2 ML VIAL ONE (09:16)
[2017-06-03 09:21] LABS: AUTOMATED NEUTROPHIL # 7.5 TH/MM3 (1.8-7.7); BASOPHIL # 0.1 TH/MM3 (0-0.2); BASOPHIL % 0.7 % (0.0-2.0); EOSINOPHIL # 0.1 TH/MM3 (0-0.4); EOSINOPHIL % 0.7 % (0.0-4.0); HEMATOCRIT 39.2 % (35.0-46.0); HEMO FLAGS DIFF FINAL; LYMPH % 27.1 % (9.0-44.0); LYMPHOCYTE # 3.1 TH/MM3 (1.0-4.8); MEAN CORPUSCULAR HEMOGLOBIN 30.9 PG (27.0-34.0); MEAN CORPUSCULAR HGB CONC 33.9 % (32.0-36.0); MONO % 5.8 % (0.0-8.0); NEUT % 65.7 % (16.0-70.0); PLATELET COUNT 283 TH/MM3 (150-450); RED CELL DISTRIBUTION WIDTH 14.7 % (11.6-17.2); WHITE BLOOD COUNT 11.4 TH/MM3 (4.0-11.0)
--- NOTE | 2017-06-03 09:25 | PD ---
HPI Chief Complaint: Pain: Acute or Chronic Time Seen by Provider: 08:37 Travel History International Travel<30 days: No Contact w/Intl Traveler<30days: No Traveled to known affect area: No History of Present Illness HPI 42-year-old female history chronic back pain, left lower extremity DVT, presents today with complaints of worsening back pain and left calf pain. The patient states that she had a laminectomy [address] Edgar Harvey. She states she was doing well up until yesterday when the pain started getting worse. She reports severe pain in her lower lumbar area radiating down her left leg into her calf. She's been placed back on Coumadin on Monday. She is also doing Lovenox injections to bridge until her Coumadin is therapeutic. She reports subjective fever at home however she was afebrile here. There is no reported weakness chest pain. PFSH Past Medical History Hx Anticoagulant Therapy: Yes (XARELTO STARTED 05/11/17) Asthma: No Blood Disorders: No Anxiety: Yes Depression: No Heart Rhythm Problems: No Cancer: No Cardiovascular Problems: Yes (DVT LLE, HX COSTOCHONDRITIS) High Cholesterol: No Chemotherapy: No Chest Pain: No Congestive Heart Failure: No COPD: No Diabetes: No Diminished Hearing: No Endocrine: Yes Gastrointestinal Disorders: No Genitourinary: No Hepatitis: No Hiatal Hernia: No Hypertension: Yes Immune Disorder: No Implanted Vascular Access Dvce: No Medical other: Yes (STEROID INJECTIONS) Musculoskeletal: No Neurologic: Yes (back pain and numbness down LEFT leg) Psychiatric: Yes (ANXIETY) Reproductive: No Respiratory: No Immunizations Current: No Radiation Therapy: No Seizures: No Sleep Apnea: No Thyroid Disease: Yes (HYPOTHYROID ) ?: Not : 0 Tubal Ligation: Yes (CERVICAL ABLATION) Past Surgical History Abdominal Surgery: No AICD: No Body Medical Devices: NONE Cardiac Surgery: No Ear Surgery: Yes (TYMPNOPLASTY) Endocrine Surgery: No Eye Surgery: No Genitourinary Surgery: No Gynecologic Surgery: Yes (TUBAL LIGATION, UTERINE ABLASION) Joint Replacement: No Neurologic Surgery: No Oral Surgery: Yes (septoplasty tympnoplasty rhinoplasty) Pacemaker: No Thoracic Surgery: No Tympanostomy Tube: Yes Other Surgery: Yes (UTERINE ABLASION ,septoplasty) Social History Alcohol Use: Yes (OCCASIONAL) Tobacco Use: No Substance Use: No Allergies-Medications (Allergen,Severity, Reaction): Coded Allergies: oxycodone (Unverified Allergy, Severe, nausea, 06/03/17) Reported Meds & Prescriptions Reported Meds & Active Scripts Active Hydrocodone-Acetaminophen 10-325 mg Tab 1 Tab PO Q4H PRN Lovenox Inj (Enoxaparin Sodium) 100 Mg/Ml Syr 100 Mg SQ BID Begin Lovenox 04/29/2017 morning dose Coumadin (Warfarin) 5 Mg Tab 5 Mg PO DAILY Gabapentin 300 Mg Cap 300 Mg PO TID Metoprolol Tartrate 50 Mg Tab 50 Mg PO DAILY Reported Lexapro (Escitalopram Oxalate) 10 Mg Tab 10 Mg PO DAILY Synthroid (Levothyroxine Sodium) 100 Mcg Tab 100 Mcg PO DAILY PT CAN ONLY TAKE SYNTHROID NO GENERIC Benadryl Allergy (Diphenhydramine HCl) 25 Mg Tablet 50 Mg l-Lysine (Lysine HCl) 500 Mg Tab 1,000 Mg B Complex (B-Complex Vitamins) 1 Cap 1 Cap PO DAILY Zyrtec (Cetirizine HCl) 10 Mg Tablet 10 Mg PO DAILY Probiotic (Lactobacillus Acidophilus) 10 Billion Cell Cap 2 Cap PO TIDAC Womens One Daily (Multiple Vitamins W/ Minerals) 27 Mg-0.4 Mg Tab Stool Softener (Docusate Sodium) 100 Mg Tab 200 Mg Hydrocodone-Acetaminophen 5-325 mg Tab 1 Tab PO Q6H PRN Liothyronine (Liothyronine Sodium) 25 Mcg Tab 25 Mcg PO EVERY OTHER DAY Valtrex (Valacyclovir HCl) 1 Gm Tab 1,000 Mg PO DAILY Review of Systems Except as stated in HPI: all other systems reviewed are Neg General / Constitutional: No: Fever, Chills HENT: No: Headaches, Lightheadedness Cardiovascular: No: Chest Pain or Discomfort, Palpitations Respiratory: No: Cough, Shortness of Breath Gastrointestinal: No: Nausea, Vomiting, Abdominal Pain Genitourinary: No: Frequency, Dysuria, Incontinence Musculoskeletal: Positive: Pain (low back and left leg posterior leg down to the calf.), No: Weakness, Edema Skin: No Rash, No Lesions Neurologic: Positive: Focal Abnormalities, No: Weakness, Headache, Incontinence , Sensory Disturbance Physical Exam Narrative GENERAL: Well-nourished female in no obvious respiratory distress. SKIN: Focused skin assessment warm/dry. HEAD: Atraumatic. Normocephalic. EYES: Pupils equal and round. No scleral icterus. No injection or drainage. ENT: No nasal bleeding or discharge. Mucous membranes pink and moist. NECK: Trachea midline. . CARDIOVASCULAR: Regular rate and rhythm. No murmur appreciated. RESPIRATORY: No accessory muscle use. Clear to auscultation. Breath sounds equal bilaterally. GASTROINTESTINAL: Abdomen soft, non-tender, nondistended. Hepatic and splenic margins not palpable. MUSCULOSKELETAL: No obvious deformities. No clubbing. No cyanosis. No edema. BACK: No CVA tenderness. No rash. Examination of the patient's surgical site, no purulent drainage. There appears to be antibacterial ointment over the suture site NEUROLOGICAL: Awake and alert. No obvious cranial nerve deficits. Motor grossly within normal limits. Normal speech. Subjective pain from her lumbar region to her buttock and down her leg. PSYCHIATRIC: Appropriate mood and affect; insight and judgment normal. Data Data Last Documented VS Vital Signs Date Time Temp Pulse Resp B/P (MAP) Pulse Ox O2 Delivery O2 Flow Rate FiO2 06/03/17 11:00 72 18 112/68 (83) 97 Room Air 06/03/17 08:08 98.5 Orders Orders Complete Blood Count With Diff (06/03/17 08:49) Basic Metabolic Panel (Bmp) (06/03/17 08:49) Prothrombin Time / Inr (Pt) (06/03/17 08:49) Act Partial Throm Time (Ptt) (06/03/17 08:49) Iv Access Insert/Monitor (06/03/17 08:49) Ecg Monitoring (06/03/17 08:49) Oximetry (06/03/17 08:49) Hydromorphone Pf Inj (Dilaudid Pf Inj) (06/03/17 09:00) Mri L Spine W&W/O Contrast (06/03/17 08:49) Ondansetron Inj (Zofran Inj) (06/03/17 09:16) Ondansetron Inj (Zofran Inj) (06/03/17 09:45) Gadodiamide Pf Inj (Omniscan Pf Inj) (06/03/17 09:07) Hydromorphone Pf Inj (Dilaudid Pf Inj) (06/03/17 11:30) Admit Order (Ed Use Only) (06/03/17 12:00) Warfarin (Coumadin) (06/03/17 12:15) Labs Laboratory Tests Test 06/03/17 09:12 White Blood Count 11.4 TH/MM3 Red Blood Count 4.30 MIL/MM3 Hemoglobin 13.3 GM/DL Hematocrit 39.2 % Mean Corpuscular Volume 91.0 FL Mean Corpuscular Hemoglobin 30.9 PG Mean Corpuscular Hemoglobin Concent 33.9 % Red Cell Distribution Width 14.7 % Platelet Count 283 TH/MM3 Mean Platelet Volume 7.2 FL Neutrophils (%) (Auto) 65.7 % Lymphocytes (%) (Auto) 27.1 % Monocytes (%) (Auto) 5.8 % Eosinophils (%) (Auto) 0.7 % Basophils (%) (Auto) 0.7 % Neutrophils # (Auto) 7.5 TH/MM3 Lymphocytes # (Auto) 3.1 TH/MM3 Monocytes # (Auto) 0.7 TH/MM3 Eosinophils # (Auto) 0.1 TH/MM3 Basophils # (Auto) 0.1 TH/MM3 CBC Comment DIFF FINAL Differential Comment Prothrombin Time 10.7 SEC Prothromb Time International Ratio 1.0 RATIO Activated Partial Thromboplast Time 24.9 SEC Blood Urea Nitrogen 9 MG/DL Creatinine 0.76 MG/DL Random Glucose 103 MG/DL Calcium Level 8.7 MG/DL Sodium Level 135 MEQ/L Potassium Level 3.9 MEQ/L Chloride Level 103 MEQ/L Carbon Dioxide Level 25.6 MEQ/L Anion Gap 6 MEQ/L Estimat Glomerular Filtration Rate 83 ML/MIN MDM Medical Decision Making Medical Screen Exam Complete: Yes Emergency Medical Condition: Yes Differential Diagnosis Postsurgical inflammation versus infection versus worsening DVT Narrative Course 42-year-old female status post laminectomy 5 days prior, presents today with complaint of increasing pain in her low back radiating down her left leg. Patient also complaining of left calf pain. Patient has a history of DVT diagnosed this month. She is currently on Coumadin and Lovenox. She apparently has been taking 5 mg daily however her INR is 1.0. Given this, and her increased pain, she'll be admitted to the hospital under observation for pain control and to evaluate her INR is increasing. MRI of the lower lumbar region shows post surgical changes with no obvious abscess or infectious process. Case was discussed with Dr. Halle Ramsay, who agreed with admission. The patient be admitted to Dr. Sydney Cabello service. Diagnosis Primary Impression: Intractable pain Additional Impressions: status post lumbar laminectomy 5 days prior Subtherapeutic international normalized ratio (INR) Left leg DVT Admitting Information Admitting Physician Requests: Observation Iván Nolasco MD Jun 03, 2017 09:24
[2017-06-03 09:32] LABS: APTT (PATIENT) 24.9 SEC (24.3-30.1); PROTHROMBIN TIME - PATIENT 10.7 SEC (9.8-11.6)
[2017-06-03] MEDS ORDERED: ONDANSETRON HCL 4 MG/2 ML VIAL IV PUSH ONE (09:45)
[2017-06-03 09:50] LABS: BICARBONATE 25.6 MEQ/L (21.0-32.0)
[2017-06-03 09:51] LABS: POTASSIUM 3.9 MEQ/L (3.5-5.1)
--- NOTE | 2017-06-03 10:39 | RADRPT ---
EXAM DATE/TIME: 06/03/2017 09:39 [facility] COMPARISON: No previous studies available for comparison. [facility], lumbar spine mri w/o April 12, 2017 INDICATIONS : Post surgical pain. CONTRAST: 20 cc Omniscan (gadodiamide) IV MEDICAL HISTORY : Hypertension. SURGICAL HISTORY : Tubal ligation. Tympanoplasty. ENCOUNTER: Initial ACUITY: 1 day PAIN SCORE: 5/10 LOCATION: [facility] TECHNIQUE: Multiplanar multisequence MRI of the lumbar spine was performed with and without contrast. FINDINGS: The most caudal appearing lumbar vertebra is numbered as L5. T12-L1: The thecal sac has a normal diameter. No evidence of disc bulge or protrusion. The neural foramina are patent bilaterally. L1-L2: The thecal sac has a normal diameter. No evidence of disc bulge or protrusion. The neural foramina are patent bilaterally. L2-L3: The thecal sac has a normal diameter. No evidence of disc bulge or protrusion. The neural foramina are patent bilaterally. L3-L4: The thecal sac has a normal diameter. No evidence of disc bulge or protrusion. The neural foramina are patent bilaterally. L4-L5: Mild broad-based posterior disc protrusion and facet arthropathy with mild encroachment on the latera l recesses and neural foramina. L5-S1: Previous left-sided laminectomy with enhancing epidural fibrosis in the left lateral recess and moder ate effacement of the thecal sac at the lumbosacral junction. There is some residual disc protrusion, broad-based. No significant abnormal marrow enhancement. CONCLUSION: 1. Previous left-sided laminectomy at the lumbosacral junction with enhancing epidural fibrosis on th e left side and moderate effacement of the thecal sac at the lumbosacral junction. This is worse on t he left side. There is some enhancement in the soft tissues. No abnormal fluid collections or evidenc e for osteomyelitis. 2. At L4-5 there is a mild broad-based disc protrusion and facet arthropathy with mild encroachment o n the lateral recesses. Odin Lim MD on June 03, 2017 at 10:32 Board Certified Radiologist. This report was verified electronically.
[2017-06-03] MEDS ORDERED: WARFARIN SOD 10 MG TAB PO ONE (12:15)
[2017-06-03] MEDS ORDERED: PROCHLORPERAZINE INJ 10 MG/2 ML VIAL IV PUSH ONE (12:15)
[2017-06-03] MEDS ORDERED: MAGNESIUM HYDROXIDE SUSP 30 ML CUP PO PRN (12:30)
[2017-06-03] MEDS ORDERED: SENNOSIDES 8.6 MG TAB PO PRN (12:30)
[2017-06-03] MEDS ORDERED: NALOXONE HCL 0.4 MG/ML AMP IV PUSH PRN ×2 (12:30→12:45)
[2017-06-03] MEDS ORDERED: LACTULOSE SYRUP 20 GM/30 ML CUP PO PRN (12:30)
[2017-06-03] MEDS ORDERED: BISACODYL 10 MG SUPP RECTAL PRN (12:30)
[2017-06-03] MEDS ORDERED: ACETAMINOPHEN 325 MG TAB PO PRN (12:30)
[2017-06-03] MEDS ORDERED: SODIUM CHLORIDE 0.9% FLUSH 10 ML FLUSH IV FLUSH PRN (12:30)
--- NOTE | 2017-06-03 12:39 | HHI.HP ---
[facility] Service Family Medicine Primary Care Physician Bobby Ramsay MD Admission Diagnosis intractable back pain, subtherapeutic INR Diagnoses: International Travel<30 Days: No Contact w/Intl Traveler<30days: No History of Present Illness Patient is a 42-year-old female with history of chronic lower back pain, hypertension, DVT and recent laminectomy who presents with back and lower extremity pain. She had acute onset of pain in the lower back, left hip, left leg yesterday evening which became intractable. Laminectomy [address] Harvey. Diagnosis prior to procedure was degenerative disc disease L4-5 and L5-S1; with a central to left disc protrusion L5-S1 based on outpatient MRI. MRI performed in ED today and no obvious infection or cause of acute pain noted. Taking hydrocodone 10mg every 4-6hr at home, didn't work yesterday. Severity 2-3 now but she is status post Dilaudid 2, at it worst it was 7-8/10 last night. Had 99.6F temperature at home this morning. No fevers, chills, n/v, chest pain, shortness of breath at home. No bowel or bladder incontinence or retention. DVT diagnosed 05/12/2017, presumed related to immobility per patient. Has been on Warfarin 5mg daily since that time. She stopped warfarin 5 days before procedure and restarting 05/30 (day after procedure). Mobility has been good postoperatively. She has been ambulating without difficulty and no falls. PCP is Dr. Bobby Ramsay. (Robyn Ramsay MD R2) Review of Systems Constitutional: DENIES: Fever, Chills, Dizziness Eyes: DENIES: Blurred vision, Diplopia Respiratory: DENIES: Cough, Wheezing, Shortness of breath Cardiovascular: DENIES: Chest pain, Palpitations Gastrointestinal: COMPLAINS OF: Nausea, Vomiting, DENIES: Abdominal pain, Constipation, Diarrhea Genitourinary: DENIES: Abnormal vaginal bleeding, Urinary frequency, Urgency, Dysuria Musculoskeletal: COMPLAINS OF: Back pain, DENIES: Joint pain, Muscle aches, Stiffness, Joint Swelling, Neck pain Integumentary: DENIES: Pruritus, Rash Hematologic/lymphatic: COMPLAINS OF: Bruising (Lovenox shots, IVs) Immunologic/allergic: DENIES: Eczema, Urticaria Neurologic: DENIES: Headache, Localized weakness, Seizures, Poor Balance Psychiatric: DENIES: Anxiety, Confusion, Depression (Robyn Ramsay MD R2) Past Family Social History Past Medical History PMH: Hypothyroidism HTN Anxiety DVT PSH: Tympanoplasty and septoplasty due to chronic sinuosities and otitis media 2007 Oral surgery, 2011, 2013, 2015 Uterine ablation and tubal ligation 2016 Laminectomy 05/29/2017 (Dr. Harvey) SH: Currently works at [employer], she lives at home with her fiance She denies Smoking, has a glass of wine occasionally, denies illicit drug use. She is working out regularly at the gym. FH: Pt is adopted and has been in contact with her family mother has history of cardiac disease and DM Health maintenance: Mammogram last year was normal per pt Pap smears last one was last month, normal per pt, no history of abnormal results Dr. Glynn was previous PCP Dr. Carvajal is [employer] Past Surgical History above Reported Medications Reported Meds & Active Scripts Active Hydrocodone-Acetaminophen 10-325 mg Tab 1 Tab PO Q4H PRN Lovenox Inj (Enoxaparin Sodium) 100 Mg/Ml Syr 100 Mg SQ BID Begin Lovenox 04/29/2017 morning dose Coumadin (Warfarin) 5 Mg Tab 5 Mg PO DAILY Gabapentin 300 Mg Cap 300 Mg PO TID Metoprolol Tartrate 50 Mg Tab 50 Mg PO DAILY Reported Lexapro (Escitalopram Oxalate) 10 Mg Tab 10 Mg PO DAILY Synthroid (Levothyroxine Sodium) 100 Mcg Tab 100 Mcg PO DAILY PT CAN ONLY TAKE SYNTHROID NO GENERIC Benadryl Allergy (Diphenhydramine HCl) 25 Mg Tablet 50 Mg l-Lysine (Lysine HCl) 500 Mg Tab 1,000 Mg B Complex (B-Complex Vitamins) 1 Cap 1 Cap PO DAILY Zyrtec (Cetirizine HCl) 10 Mg Tablet 10 Mg PO DAILY Probiotic (Lactobacillus Acidophilus) 10 Billion Cell Cap 2 Cap PO TIDAC Womens One Daily (Multiple Vitamins W/ Minerals) 27 Mg-0.4 Mg Tab Stool Softener (Docusate Sodium) 100 Mg Tab 200 Mg Hydrocodone-Acetaminophen 5-325 mg Tab 1 Tab PO Q6H PRN Liothyronine (Liothyronine Sodium) 25 Mcg Tab 25 Mcg PO EVERY OTHER DAY Valtrex (Valacyclovir HCl) 1 Gm Tab 1,000 Mg PO DAILY (Robyn Ramsay MD R2) Allergies: Coded Allergies: oxycodone (Unverified Allergy, Severe, nausea, 06/03/17) Family History above Social History above (Robyn Ramsay MD R2) Physical Exam Vital Signs Vital Signs Date Time Temp Pulse Resp B/P (MAP) Pulse Ox O2 Delivery O2 Flow Rate FiO2 06/03/17 11:00 72 18 112/68 (83) 97 Room Air 06/03/17 10:04 18 06/03/17 09:10 78 18 128/78 (95) 98 Room Air 06/03/17 08:08 98.5 77 16 145/73 (97) 97 Physical Exam GENERAL: This is a well-nourished, well-developed female appears tired but is alert. SKIN: Ecchymoses on lower abdomen from Lovenox shots, also on left dorsal hand from IV. No rashes, ecchymoses or lesions. Skin is warm and dry. Area over lumbar surgical site has silver nitrate dressing (black) and there is no sign of infection. HEAD: Atraumatic. Normocephalic. No temporal or scalp tenderness. EYES: PERRL 2 mm bilaterally. Extraocular motions intact. No scleral icterus. No injection or drainage. ENT: Nose without bleeding or drainage. Throat without erythema, tonsillar hypertrophy or exudate. Uvula midline. Airway patent. NECK: Trachea midline. No JVD or lymphadenopathy. Supple, nontender, no meningeal signs. CARDIOVASCULAR: Regular rate and rhythm without murmurs, gallops, or rubs. RESPIRATORY: Clear to auscultation but decreased efforts due to pain. Breath sounds equal bilaterally. No wheezes, rales, or rhonchi. BACK: Normal alignment. Nontender to palpation along cervical and thoracic spine. Tender to palpation though mild at lumbar spine (post pain meds) GASTROINTESTINAL: Abdomen soft, non-tender, obese. Normal bowel sounds. No hepato-splenomegaly, or palpable masses. No guarding. MUSCULOSKELETAL: Extremities without clubbing, cyanosis, or edema. Minimal edema noted in the lower extremity. No calf tenderness. Negative Homans sign bilaterally. NEUROLOGICAL: Awake and alert. Cranial nerves II through XII intact. Motor and sensory grossly within normal limits. Five out of 5 muscle strength in all muscle groups though pain limits exam. Normal speech. Laboratory Laboratory Tests Test 06/03/17 09:12 White Blood Count 11.4 Red Blood Count 4.30 Hemoglobin 13.3 Hematocrit 39.2 Mean Corpuscular Volume 91.0 Mean Corpuscular Hemoglobin 30.9 Mean Corpuscular Hemoglobin Concent 33.9 Red Cell Distribution Width 14.7 Platelet Count 283 Mean Platelet Volume 7.2 Neutrophils (%) (Auto) 65.7 Lymphocytes (%) (Auto) 27.1 Monocytes (%) (Auto) 5.8 Eosinophils (%) (Auto) 0.7 Basophils (%) (Auto) 0.7 Neutrophils # (Auto) 7.5 Lymphocytes # (Auto) 3.1 Monocytes # (Auto) 0.7 Eosinophils # (Auto) 0.1 Basophils # (Auto) 0.1 CBC Comment DIFF FINAL Differential Comment Prothrombin Time 10.7 Prothromb Time International Ratio 1.0 Activated Partial Thromboplast Time 24.9 Blood Urea Nitrogen 9 Creatinine 0.76 Random Glucose 103 Calcium Level 8.7 Sodium Level 135 Potassium Level 3.9 Chloride Level 103 Carbon Dioxide Level 25.6 Anion Gap 6 Estimat Glomerular Filtration Rate 83 (Robyn Ramsay MD R2) Result Diagram: 06/03/1791106/03/17911 Imaging Last Impressions Lumbar Spine MRI 06/03/17 0849 Signed Impressions: Service Date/Time: Saturday, June 03, 2017 09:39 - CONCLUSION: 1. Previous left-sided laminectomy at the lumbosacral junction with enhancing epidural fibrosis on the left side and moderate effacement of the thecal sac at the lumbosacral junction. This is worse on the left side. There is some enhancement in the soft tissues. No abnormal fluid collections or evidence for osteomyelitis. 2. At L4-5 there is a mild broad-based disc protrusion and facet arthropathy with mild encroachment on the lateral recesses. Odin Lim MD (Robyn Ramsay MD R2) Caprini VTE Risk Assessment Caprini VTE Risk Assessment: Mod/High Risk (score >= 2) Caprini Risk Assessment Model Point Value = 1 Point Value = 2 Point Value = 3 Point Value = 5 Age 41-60 Minor surgery BMI > 25 kg/m2 Swollen legs Varicose veins or History of unexplained or recurrent spontaneous Oral contraceptives or hormone replacement Sepsis (< 1 month) Serious lung disease, including pneumonia (< 1 month) Abnormal pulmonary function Acute myocardial infarction Congestive heart failure (< 1 month) History of inflammatory bowel disease Medical patient at bed rest Age 61-74 Arthroscopic surgery Major open surgery (> 45 min) Laparoscopic surgery (> 45 min) Malignancy Confined to bed (> 72 hours) Immobilizing plaster cast Central venous access Age >= 75 History of VTE Family history of VTE Factor V Leiden Prothrombin [id number] Lupus anticoagulant Anticardiolipin antibodies Elevated serum homocysteine Heparin-induced thrombocytopenia Other congenital or acquired thrombophilia Stroke (< 1 month) Elective arthroplasty Hip, pelvis, or leg fracture Acute spinal cord injury (< 1 month) Prophylaxis Regimen Total Risk Factor Score Risk Level Prophylaxis Regimen 0-1 Low Early ambulation 2 Moderate Order ONE of the following: *Sequential Compression Device (SCD) *Heparin 5000 units SQ BID 3-4 Higher Order ONE of the following medications: *Heparin 5000 units SQ TID *Enoxaparin/Lovenox 40 mg SQ daily (WT < 150 kg, CrCl > 30 mL/min) *Enoxaparin/Lovenox 30 mg SQ daily (WT < 150 kg, CrCl > 10-29 mL/min) *Enoxaparin/Lovenox 30 mg SQ BID (WT < 150 kg, CrCl > 30 mL/min) AND/OR *Sequential Compression Device (SCD) 5 or more Highest Order ONE of the following medications: *Heparin 5000 units SQ TID (Preferred with Epidurals) *Enoxaparin/Lovenox 40 mg SQ daily (WT < 150 kg, CrCl > 30 mL/min) *Enoxaparin/Lovenox 30 mg SQ daily (WT < 150 kg, CrCl > 10-29 mL/min) *Enoxaparin/Lovenox 30 mg SQ BID (WT < 150 kg, CrCl > 30 mL/min) AND *Sequential Compression Device (SCD) (Robyn Ramsay MD R2) Assessment and Plan Assessment and Plan 42-year-old female with recent laminectomy for chronic back pain/sciatica, hypertension, DVT who presents with worsening pain 5 days after procedure. ED workup included MRI of the lumbar spine which showed no acute abnormalities. Lab work performed and notable only for subtherapeutic INR. Patient received 2 doses of Dilaudid which helped with her pain in the ED. She received 10 mg dose of warfarin 1. She received anti-emetics due to nausea after getting pain medication. Plan: Patient to be admitted to observation for pain control and possible further evaluation by neurosurgery. Likely to require inpatient monitoring, pain meds (IV transition to oral), and discharge in 1-2 days. Code Status Full Code Discussed Condition With Dr. Nolasco, Dr. Rodriguez Attending: Dr. Sydney Cabello --> Dr. Shannon (on 06/04/2017) (Robyn Ramsay MD R2) Attending Attestation I was available for questions re: this pt, but did not interview or examine. Pt to be assessed, including review of this H&P, by Dr Shannon who assumed FPTS- resident service 06-04-17 (Sydney Cabello MD) Problem List: (1) Intractable pain ICD Codes: R52 - Pain, unspecified Status: Acute Plan: Patient presented with severe pain likely postoperative pain. No obvious infection or signs of infection on initial evaluation (vital signs within normal limits, labs within normal limits, MRI no acute abnormality). During procedure does likely the patient had intra-lesional pain medication administered which may be wearing off. She may also have steroids administered. Plan: * Pain control with Dilaudid 0.5 mg IV every 3 hours pain 3-5, Dilaudid 1 mg IV every 3 hours pain 6-10, morphine 4 mg IV for breakthrough pain * Nausea has only occurred since pain medication has been administered. We will administer Zofran 4 mg every 6 hours as needed, Compazine 10mg IV every 6 hours as needed. * Neurosurgeon consulted verbally in the ED, will place formal consult * Monitor vital signs closely with reversal of pain medication as needed (2) Status post laminectomy ICD Codes: Z98.890 - Other specified postprocedural states Status: Acute Plan: Plan as above (3) Left leg DVT ICD Codes: I82.402 - Acute embolism and thrombosis of unspecified deep veins of left lower extremity Status: Acute Plan: Patient states DVT was diagnosed 05/12 and she has been on warfarin 5 mg since this time. INR is subtherapeutic today. She stopped warfarin 5 days prior to procedure on 05/29 and restarted warfarin on 05/30. Plan: * Warfarin 10 mg 1 was given in ED * Recheck INR in the morning * Patient is on Lovenox 100 mg subcutaneously twice a day postoperatively per neurosurgeon, 05/30-06/05. Will continue with a stop date of 06/05. * Likely patient will benefit from novel anticoagulant, she expresses interest in this possibility (4) Subtherapeutic international normalized ratio (INR) ICD Codes: R79.1 - Abnormal coagulation profile Status: Acute Plan: As above (5) HTN, goal below 140/90 ICD Codes: I10 - Essential (primary) hypertension Status: Chronic Plan: Chronic. Blood pressure within normal limits on admission. Continue home dose metoprolol and monitor for hypotension. We'll also give PRN Vasotec as needed. (6) Hypothyroidism ICD Codes: E03.9 - Hypothyroidism, unspecified Status: Chronic Plan: Chronic. Patient is on levothyroxine and supplemental T3. Continue home medication at this time. Consider surveillance TSH/T3/free T4 while inpatient if indicated. (7) Nutrition, metabolism, and development symptoms ICD Codes: R63.8 - Other symptoms and signs concerning food and fluid intake Status: Acute Plan: Fluids: tolerating PO. Will get maintenance IV fluids if needed for continued vomiting or poor urine output Electrolytes: monitor and replete as needed Nutrition: Regular diet per patient request. She is counseled on bland diet given nausea with pain medication. DVT Prophylaxis: Early ambulation. PT evaluation ordered. Lovenox 100mg subQ q12hr at home (continuing). Bilateral SCDs (ordered). Warfarin (10 mg dose 1 on 06/03, will hold future doses) GI Prophylaxis: not indicated PRN anti-HTN: Vasotec 1.25mg IV q6hr PRN for SBP > 180/ and/or DBP > 100 (Robyn Ramsay MD R2) Robyn Ramsay MD R2 Jun 03, 2017 12:39 Sydney Cabello MD Jun 05, 2017 08:50
[2017-06-03] MEDS ORDERED: MORPHINE SULFATE 4 MG/ML INJ IV PUSH PRN ×2 (12:45→19:30)
[2017-06-03] MEDS ORDERED: HYDROmorphone HCL PF 1 MG/ML VIAL IV PUSH PRN ×2 (12:45)
[2017-06-03] MEDS ORDERED: ENALAPRILAT 1.25 MG/ML VIAL IV PUSH PRN (13:00)
[2017-06-03] MEDS: GABAPENTIN 300 MG CAP PO SCH ×2 (14:39→17:43)
[2017-06-03] MEDS ORDERED: ONDANSETRON HCL 4 MG/2 ML VIAL IVP PRN (16:00)
[2017-06-03] MEDS ORDERED: PROCHLORPERAZINE INJ 10 MG/2 ML VIAL IV PUSH PRN (18:00)
--- NOTE | 2017-06-03 19:36 | HHI.NSPN ---
History Interval History 42-year-old lady who is postop day #5 status post left L5-S1 hemilaminotomy with discectomy undertaken by Dr. Harvey. She also has a history of left lower extremity DVT on chronic Coumadin therapy which is restarted after her surgery. She relates that her leg pain improved after surgery and last night she had recurrent pain which is intolerable and therefore presented to the emergency room today. No fevers at about or chills but this is resolved. With pain medications she is feeling much better now. Denies any weakness or incontinence and denies any right lower extremity symptoms. Exam Results Vital Signs Date Time Temp Pulse Resp B/P (MAP) Pulse Ox O2 Delivery O2 Flow Rate FiO2 06/03/17 19:04 98.1 79 18 133/86 (102) 97 06/03/17 11:00 Room Air Physical Examination Lumbar incision site is healing well with no erythema or drainage noted and dry dressing. No tenderness or fluctuance. She's awake alert Cranial nerves are intact Her strength 5 out of 5 in the upper and lower extremities Sensation intact to light touch in lower extremities with negative Babinski Negative straight leg raise test Lab, Micro, Other Results Last Impressions Lumbar Spine MRI 06/03/17 0849 Signed Impressions: Service Date/Time: Monday, June 03, 2017 09:39 - CONCLUSION: 1. Previous left-sided laminectomy at the lumbosacral junction with enhancing epidural fibrosis on the left side and moderate effacement of the thecal sac at the lumbosacral junction. This is worse on the left side. There is some enhancement in the soft tissues. No abnormal fluid collections or evidence for osteomyelitis. 2. At L4-5 there is a mild broad-based disc protrusion and facet arthropathy with mild encroachment on the lateral recesses. Odin Lim MD Laboratory Tests Test 06/03/17 09:12 White Blood Count 11.4 Red Blood Count 4.30 Hemoglobin 13.3 Hematocrit 39.2 Mean Corpuscular Volume 91.0 Mean Corpuscular Hemoglobin 30.9 Mean Corpuscular Hemoglobin Concent 33.9 Red Cell Distribution Width 14.7 Platelet Count 283 Mean Platelet Volume 7.2 Neutrophils (%) (Auto) 65.7 Lymphocytes (%) (Auto) 27.1 Monocytes (%) (Auto) 5.8 Eosinophils (%) (Auto) 0.7 Basophils (%) (Auto) 0.7 Neutrophils # (Auto) 7.5 Lymphocytes # (Auto) 3.1 Monocytes # (Auto) 0.7 Eosinophils # (Auto) 0.1 Basophils # (Auto) 0.1 CBC Comment DIFF FINAL Differential Comment Prothrombin Time 10.7 Prothromb Time International Ratio 1.0 Activated Partial Thromboplast Time 24.9 Blood Urea Nitrogen 9 Creatinine 0.76 Random Glucose 103 Calcium Level 8.7 Sodium Level 135 Potassium Level 3.9 Chloride Level 103 Carbon Dioxide Level 25.6 Anion Gap 6 Estimat Glomerular Filtration Rate 83 Medical Decision Making Impression and Plan 42-year-old lady with the recurrent left lower extremity pain status post the left L5-S1 hemilaminotomy with discectomy [address] Harvey. She is also on Coumadin for left lower extremity DVT although the INR is subtherapeutic. MRI scan consistent with postop inflammatory/scar tissue with some residual disc protrusion at the L4-5 and L5-S1 level. Continue with anticoagulation for her DVT and pain control. She is feeling much better now with pain medications and has been ambulating and going to the bathroom. She can be discharged when medically stable and follow up with Dr. Harvey next week as scheduled. Jaylen La MD Jun 03, 2017 19:36
[2017-06-03] MEDS: ENOXAPARIN SODIUM 100 MG/ML SYRINGE SQ SCH (21:14)
[2017-06-03] MEDS: DOCUSATE SODIUM 50 MG/SENNA 8.6 MG TAB PO SCH (21:14)
[2017-06-03] MEDS: SODIUM CHLORIDE 0.9% FLUSH 10 ML FLUSH IV FLUSH SCH (21:14)
[2017-06-03] MEDS: ACETAMINOPHEN/HYDROcodone 325 MG/10 MG TAB PO PRN (21:15)
[2017-06-03] MEDS ORDERED: PROCHLORPERAZINE 25 MG SUPP RECTAL PRN (23:00)
[2017-06-04 04:08] VITALS: BP 129/76; PULSE 83; RESP 18; TEMP 98.7; O2SAT 97
[2017-06-04 04:15] LABS: AUTOMATED NEUTROPHIL # 7.1 TH/MM3 (1.8-7.7); BASOPHIL % 0.3 % (0.0-2.0); EOSINOPHIL # 0.1 TH/MM3 (0-0.4); EOSINOPHIL % 0.8 % (0.0-4.0); HEMATOCRIT 39.2 % (35.0-46.0); HEMO FLAGS DIFF FINAL; LYMPH % 26.4 % (9.0-44.0); LYMPHOCYTE # 2.8 TH/MM3 (1.0-4.8); MEAN CELL VOLUME 92.4 FL (80.0-100.0); MEAN CORPUSCULAR HEMOGLOBIN 31.2 PG (27.0-34.0); MEAN CORPUSCULAR HGB CONC 33.8 % (32.0-36.0); MONO % 6.3 % (0.0-8.0); NEUT % 66.2 % (16.0-70.0); PLATELET COUNT 257 TH/MM3 (150-450); RED BLOOD COUNT 4.24 MIL/MM3 (4.00-5.30); RED CELL DISTRIBUTION WIDTH 14.8 % (11.6-17.2); WHITE BLOOD COUNT 10.7 TH/MM3 (4.0-11.0)
[2017-06-04 04:29] LABS: ANION GAP 7 MEQ/L (5-15); AST (GOT) 16 U/L (15-37); BICARBONATE 27.7 MEQ/L (21.0-32.0); BLOOD UREA NITROGEN 7 MG/DL (7-18); CHLORIDE 102 MEQ/L (98-107); GLOMERULAR FILTRATION RATE 95 ML/MIN (>89); POTASSIUM 3.9 MEQ/L (3.5-5.1); SODIUM (NA) 137 MEQ/L (136-145)
[2017-06-04 04:30] LABS: ALT (GPT) 31 U/L (10-53)
[2017-06-04 04:33] LABS: ALKALINE PHOSPHATASE 68 U/L (45-117); TOTAL BILIRUBIN ADULT 0.5 MG/DL (0.2-1.0)
[2017-06-04 04:39] LABS: PROTHROMBIN TIME - PATIENT 11.5 SEC (9.8-11.6)
[2017-06-04] MEDS: ACETAMINOPHEN/HYDROcodone 325 MG/10 MG TAB PO PRN ×3 (06:00→14:32)
[2017-06-04] MEDS ORDERED: LEVOTHYROXINE SODIUM 100 MCG TAB PO SCH (06:00)
[2017-06-04 08:15] VITALS: BP 189/78; PULSE 76; RESP 20; TEMP 97.9; O2SAT 68
[2017-06-04] MEDS ORDERED: valACYclovir HCL 500 MG TAB PO SCH (09:00)
[2017-06-04] MEDS ORDERED: METOPROLOL TARTRATE 50 MG TAB PO SCH (09:00)
[2017-06-04] MEDS ORDERED: ESCITALOPRAM OXALATE 10 MG TAB PO SCH (09:00)
[2017-06-04] MEDS: SODIUM CHLORIDE 0.9% FLUSH 10 ML FLUSH IV FLUSH SCH (09:41)
[2017-06-04] MEDS: GABAPENTIN 300 MG CAP PO SCH ×2 (09:42→13:13)
[2017-06-04] MEDS: DOCUSATE SODIUM 50 MG/SENNA 8.6 MG TAB PO SCH (09:42)
[2017-06-04] MEDS: ENOXAPARIN SODIUM 100 MG/ML SYRINGE SQ SCH (09:43)
[2017-06-04 12:23] VITALS: BP 160/85; PULSE 72; RESP 20; TEMP 97.9; O2SAT 96
--- NOTE | 2017-06-04 13:36 | HHI.FPPN ---
Subjective Remarks Mrs. Dudley was afebrile with intermittent HTN this morning (max SBP 189; previously normotensive). Patient reports continued L calf and hip pain but states that she is feeling better than yesterday. Patient reports that her pain is generally worse at night. Patient reports normal sensation in her lower extremities. Patient has been able to ambulate some. Patient reports being agreeable to switching anticoagulants but has some concerns about the irreversibility of some NOACs. Patient does not report new symptoms at this time. (Trung Rodriguez MD, R3) Remarks Discussed possible NOAC options covered by her insurance; patient reports that after discussing with others that she has decided to pursue treatment with Xarelto. Patient's elevated blood pressures during hospitalization were also discussed; patient agrees to monitor more closely at home (Trung Rodriguez MD, R3) Objective Vitals Vital Signs Date Time Temp Pulse Resp B/P (MAP) Pulse Ox O2 Delivery O2 Flow Rate FiO2 06/04/17 12:23 97.9 72 20 160/85 (110) 96 06/04/17 08:15 97.9 76 20 189/78 (115) 68 06/04/17 04:08 98.7 83 18 129/76 (93) 97 06/03/17 23:51 98.7 85 18 123/82 (96) 97 06/03/17 19:04 98.1 79 18 133/86 (102) 97 06/03/17 14:46 97.5 69 18 117/74 (88) 95 06/03/17 13:57 70 133/80 (97) 98 (Trung Rodriguez MD, R3) Result Diagram: 06/04/17 0329 06/04/17 0329 Imaging Last Impressions Lumbar Spine MRI 06/03/17 0849 Signed Impressions: Service Date/Time: Saturday, June 03, 2017 09:39 - CONCLUSION: 1. Previous left-sided laminectomy at the lumbosacral junction with enhancing epidural fibrosis on the left side and moderate effacement of the thecal sac at the lumbosacral junction. This is worse on the left side. There is some enhancement in the soft tissues. No abnormal fluid collections or evidence for osteomyelitis. 2. At L4-5 there is a mild broad-based disc protrusion and facet arthropathy with mild encroachment on the lateral recesses. Odin Lim MD Objective Remarks GENERAL: NAD SKIN: No visible rashes. Surgical site not inspected today EYES: Extraocular motions grossly intact. No scleral icterus. No injection or drainage. ENT: Nose without bleeding or drainage. Throat without erythema, tonsillar hypertrophy or exudate. Uvula midline. Airway patent. NECK: Trachea midline. No JVD or lymphadenopathy. Supple, nontender, no meningeal signs. CARDIOVASCULAR: Regular rate and rhythm without murmurs RESPIRATORY: Clear to auscultation; normal rate. No wheezing GASTROINTESTINAL: Abdomen soft, non-tender, obese. Normal bowel sounds. No hepato-splenomegaly, or palpable masses. No guarding. MUSCULOSKELETAL: Extremities with minimal to no edema; no significant calf asymmetry; no tenderness elicited NEUROLOGICAL: Awake and alert. Cranial nerves grossly intact. Motor and sensory function grossly within normal limits. Normal speech. (Trung Rodriguez MD, R3) A/P Assessment and Plan 42-year-old female with recent laminectomy for chronic back pain/sciatica, hypertension, DVT who presents with worsening pain: Discharge Planning Will plan to discharge patient home today with follow-up with Dr. Harvey next Monday (Trung Rodriguez MD, R3) Attending Attestation Patient seen and examined. Case reviewed and discussed with the resident team. Agree with plan of care as discussed with me and documented in the resident note. she feels much better and wants to go home today (Akanksha Shannon MD) Problem List: (1) Intractable pain ICD Codes: R52 - Pain, unspecified Status: Acute Plan: 06/04: Patient reports improved pain control at this time; patient feels stable for discharge home Impression: Patient presented with severe pain likely postoperative pain. No obvious infection or signs of infection on initial evaluation (vital signs within normal limits, labs within normal limits, MRI no acute abnormality). MRI Lumbar spine 06/03- previous left-sided laminectomy at lumbosacral junction with enhancing epidural fibrosis on the left side and moderate effacement of the thecal sac at the lumbosacral junction. Worse in the left side. There is some enhancement in the soft tissues. No abnormal fluid collections or evidence for osteomyelitis. At L4-L5 there is a broad based disc protrusion and facet arthropathy with mild encroachment of the lateral recesses Plan: * Pain control with Dilaudid 0.5 mg IV every 3 hours pain 3-5, Dilaudid 1 mg IV every 3 hours pain 6-10, morphine 4 mg IV for breakthrough pain * Will plan to discharge home on oral Lortab (patient has supply at home) * Neurosurgery consulted * MRI suggestive of post-op inflammation/scar tissue with residual disc protrusion * Continue anticoagulation and pain control * Patient can be discharged when medically stable to f/u with Dr. Harvey next week as scheduled * PT per Neurosurgery (patient states she has plan in place with Dr. Harvey) (2) Status post laminectomy ICD Codes: Z98.890 - Other specified postprocedural states Status: Acute Plan: Plan as above (3) Left leg DVT ICD Codes: I82.402 - Acute embolism and thrombosis of unspecified deep veins of left lower extremity Status: Acute Plan: Impression: LLE DVT found on Doppler US 05/11; patient has been on Warfarin 5 mg since this time with intermittent Heparin for perisurgical anticoagulation and Lovenox s/p Laminectomy. She stopped warfarin 5 days prior to procedure on 05/29 and restarted warfarin on 05/30. INR 1 06/04/2017 Plan: -Will stop Warfarin -Will continue Lovenox 100mg BID (05/30-06/05 per Neurosurgery) -Will plan to start Xarelto 15mg BID 06/06 (12 hrs after last Lovenox dose) and continue for 21 days -Will then plan to continue Xarelto 20mg daily for 3-6 mo per PCP and/or Hematology (4) Subtherapeutic international normalized ratio (INR) ICD Codes: R79.1 - Abnormal coagulation profile Status: Acute Plan: As above (5) HTN, goal below 140/90 ICD Codes: I10 - Essential (primary) hypertension Status: Chronic Plan: Impression: Elevated BP this morning (max SBP 189); otherwise normotensive. -Continue home dose metoprolol -Patient will monitor blood pressure more closely at home (6) Hypothyroidism ICD Codes: E03.9 - Hypothyroidism, unspecified Status: Chronic Plan: Chronic. Patient is on levothyroxine and supplemental T3. Continue home medication at this time. Consider surveillance TSH/T3/free T4 while inpatient if indicated. (7) Nutrition, metabolism, and development symptoms ICD Codes: R63.8 - Other symptoms and signs concerning food and fluid intake Status: Acute Plan: Fluids: tolerating PO. Electrolytes: monitor and replete as needed Nutrition: Regular diet per patient request. She is counseled on bland diet given nausea with pain medication. DVT Prophylaxis: Continue Lovenox; plan for Xarelto GI Prophylaxis: not indicated PRN anti-HTN: Vasotec 1.25mg IV q6hr PRN for SBP > 180/ and/or DBP > 100 (Trung Rodriguez MD, R3) Trung Rodriguez MD, R3 Jun 04, 2017 13:36 Akanksha Shannon MD Jun 04, 2017 17:17
--- NOTE | 2017-06-04 14:16 | HHI.DCPOC ---
Discharge Care Plan Diagnosis: (1) Intractable pain (2) Lumbar disc herniation with radiculopathy (3) Left leg DVT Goals to Promote Your Health * To prevent worsening of your condition and complications * To maintain your health at the optimal level Directions to Meet Your Goals Take your medications as prescribed Follow your dietary instruction Follow activity as directed Keep your appointments as scheduled Take your immunizations and boosters as scheduled If your symptoms worsen call your PCP, if no PCP go to Urgent Care Center or Emergency Room Smoking is Dangerous to Your Health. Avoid second hand smoke Call the 24-hour hour crisis hotline for domestic abuse at Trung Rodriguez MD, R3 Jun 04, 2017 14:16
[2017-06-04] MEDS ORDERED: GABA300C5 PO (14:30)
[2017-06-04] MEDS ORDERED: XARE15TA PO (14:31)
[2017-06-04] MEDS ORDERED: XARE20TA PO (14:31)
[2017-06-04] MEDS ORDERED: GABA600T PO (14:31)
[2017-06-05] MEDS ORDERED: LIOTHYRONINE SODIUM 25 MCG TAB PO SCH (09:00)
== END 2017-06-04 15:15 | disposition home or self-care (01) ==
LOC: NEPC 08:06 → NEDA 12:03 → NEPFCDU 14:05
PROVIDERS: ADMIT Family Medicine; ATTEND Family Medicine
DX: M54.5 Low back pain (principal); M79.662 Pain in left lower leg; G89.29 Other chronic pain; Z79.01 Long term (current) use of anticoagulants; F41.9 Anxiety disorder, unspecified; M94.0 Chondrocostal junction syndrome [Tietze]; I10 Essential (primary) hypertension; R20.0 Anesthesia of skin; E03.9 Hypothyroidism, unspecified; Z79.899 Other long term (current) drug therapy; M51.16 Intervertebral disc disorders with radiculopathy, lumbar region; R11.0 Nausea; I82.402 Acute embolism and thrombosis of unspecified deep veins of left lower extremity; R79.1 Abnormal coagulation profile
CPT/HCPCS: 72158; 80048; 80053; 85025; 85610; 85730; 96372; 96374; 96375; 96376; 99285; A9579; G0378; J0780; J1170; J1650; J2405

== ENCOUNTER → 2017-06-15 | Outpatient (CLI) | payer OTHER ==
[~2017-06-15] MED LIST changes: -CIPR-9 PO; -COUM5TAB PO; +GABA600T PO; +XARE15TA PO; +XARE20TA PO
[2017-06-15 12:19] LABS: GLUCOSE,FASTING 80 MG/DL (74-99)
[2017-06-15 12:24] LABS: CHOLESTEROL 202 MG/DL (120-200)
[2017-06-15 12:26] LABS: CHOLESTEROL/ HDL RATIO 2.53 RATIO; HDL CHOLESTEROL 79.8 MG/DL (40.0-60.0); LDL CHOLESTEROL 100 MG/DL (0-99); TRIGLYCERIDES 112 MG/DL (42-150)
[2017-06-15 15:46] LABS: HEMOGLOBIN A1C 4.8 % (4.3-6.0)
== END ==
LOC: ELAB 08:44 → HRCH 08:44
DX: Z02.6 Encounter for examination for insurance purposes (principal)
CPT/HCPCS: 80061; 83036

== ENCOUNTER 2017-08-30 19:05 | Emergency (ER) | payer OTHER ==
[2017-08-30] MEDS ORDERED: GADODIAMIDE PF 287 MG/ML 5 ML VIAL (for RAD MRI) IVCONTRAST ONE (19:06)
[2017-08-30 19:09] VITALS: BP 137/89; PULSE 85; RESP 16; TEMP 98.7; O2SAT 99
[2017-08-30 19:53] LABS: AUTOMATED NEUTROPHIL # 7.1 TH/MM3 (1.8-7.7); BASOPHIL # 0.1 TH/MM3 (0-0.2); BASOPHIL % 0.5 % (0.0-2.0); EOSINOPHIL # 0.1 TH/MM3 (0-0.4); EOSINOPHIL % 0.9 % (0.0-4.0); HEMATOCRIT 40.7 % (35.0-46.0); HEMOGLOBIN 14.1 GM/DL (11.6-15.3); LYMPH % 32.3 % (9.0-44.0); LYMPHOCYTE # 3.8 TH/MM3 (1.0-4.8); MEAN CELL VOLUME 88.3 FL (80.0-100.0); MEAN CORPUSCULAR HEMOGLOBIN 30.5 PG (27.0-34.0); MEAN CORPUSCULAR HGB CONC 34.6 % (32.0-36.0); MEAN PLATELET VOLUME 7.4 FL (7.0-11.0); MONO % 5.2 % (0.0-8.0); MONOCYTE # 0.6 TH/MM3 (0-0.9); NEUT % 61.1 % (16.0-70.0); PLATELET COUNT 262 TH/MM3 (150-450); RED CELL DISTRIBUTION WIDTH 13.5 % (11.6-17.2); WHITE BLOOD COUNT 11.7 TH/MM3 (4.0-11.0)
[2017-08-30 19:58] LABS: BACTERIA, URINE MOD /hpf; BILIRUBIN, URINE NEG (NEG); BLOOD, URINE NEG (NEG); GLUCOSE,URINE NEG (NEG); KETONE, URINE NEG (NEG); MUCUS URINE FEW /lpf (OCC); NITRITE,URINE NEG (NEG); PH, URINE 7.5 (5.0-8.5); SQUAMOUS EPITHELIAL CELL URINE 3 /hpf (0-5); URINE COLOR YELLOW (YELLW/STRAW); URINE LEUKOCYTE ESTERASE MOD (NEG)
[2017-08-30 20:12] LABS: CALCIUM 8.6 MG/DL (8.5-10.1); CREATININE 0.71 MG/DL (0.50-1.00)
[2017-08-30] MEDS ORDERED: SODIUM CHLORIDE 0.9% FLUSH 10 ML FLUSH IV FLUSH PRN (22:15)
--- NOTE | 2017-08-31 00:35 | RADRPT ---
EXAM DATE/TIME: 08/30/2017 23:05 [facility] COMPARISON: SPINE LUMBAR LATERAL ONLY, May 29, 2017, 9:18. MRI LUMBAR SPINE W & W/O CONTRAST, June 03, 2017, 9:39. INDICATIONS : Status post discectomy on 05/29/2017. Left sided weakness with pain. MEDICAL HISTORY : Hypertension. Deep venous thrombosis. SURGICAL HISTORY : Tubal ligation. Discectomy, lumbar. Septoplasty, ENCOUNTER: Initial ACUITY: 1 day PAIN SCORE: 8/10 LOCATION: Left lower legs TECHNIQUE: Multiplanar multisequence MRI of the lumbar spine was performed with and without contrast. FINDINGS: The most caudal appearing lumbar vertebra is numbered as L5. VERTEBRAE: Homogeneous signal except for mild discogenic edema involving the endplates at the L5-S1 level. Pita l alignment. There is mild disc space narrowing and desiccation of the L4-5 and L5-S1 levels. CONUS: Normal level and configuration. POST CONTRAST: There is mild enhancement in the laminectomy site at the L5-S1 level. There is mild enhancement of th e inferior endplate of L5 at site of mild marrow edema. T12-L1: The thecal sac has a normal diameter. No evidence of disc bulge or protrusion. The neural foramina are patent bilaterally. L1-L2: The thecal sac has a normal diameter. No evidence of disc bulge or protrusion. The neural foramina are patent bilaterally. L2-L3: The thecal sac has a normal diameter. No evidence of disc bulge or protrusion. The neural foramina are patent bilaterally. L3-L4: The thecal sac has a normal diameter. No evidence of disc bulge or protrusion. The neural foramina are patent bilaterally. L4-L5: There is a mild posterior disc bulge which comes in contact with the anterior thecal sac with slight flattening. This is unchanged. There are mild degenerative changes involving the facet joints. The ne ural foramina are patent bilaterally. There are mild degenerative changes involving the facet joints. L5-S1: The patient is again noted to be status post left laminectomy with enhancing epidural soft tissue. Th ere is a small to moderate disc protrusion in the right paracentral region measuring approximately 10 mm gross the base and 2-3 mm in AP diameter with mild mass effect on the anterior thecal sac. There is no separate nonenhancing disc fragment. CONCLUSION: 1. Status post left laminectomy at the L5-S1 level with enhancing epidural soft tissue. There is a sm all to moderate size right paracentral disc protrusion with mild mass effect on the anterior thecal s ac. There is no disc fragment. 2. Mild disc bulge at L4-5 with mild flattening of the anterior thecal sac. 3. Mild discogenic edema in the endplates at the L5-S1 level. 4. Mild degenerative changes involving lower facet joints. Dmitriy Andrade MD on August 31, 2017 at 0:15 Board Certified Radiologist. This report was verified electronically.
--- NOTE | 2017-08-31 01:01 | PD ---
HPI Chief Complaint: Back/ Neck Pain or Injury Time Seen by Provider: 21:34 Travel History International Travel<30 days: No Contact w/Intl Traveler<30days: No Traveled to known affect area: No History of Present Illness HPI 42-year-old female complains of left lower extremity weakness. She underwent spine surgery by Dr. Harvey about 4 months prior. She notes increasing weakness in the left leg over the past few days. No fever chills. No incontinence. No falls. Location left lower extremity and neurologic. PFSH Past Medical History Hx Anticoagulant Therapy: Yes (XARELTO) Asthma: No Blood Disorders: No Anxiety: Yes Depression: No Heart Rhythm Problems: No Cancer: No Cardiovascular Problems: Yes (DVT LLE, HX COSTOCHONDRITIS) High Cholesterol: No Chemotherapy: No Chest Pain: No Congestive Heart Failure: No COPD: No Diabetes: No Diminished Hearing: No Endocrine: Yes Gastrointestinal Disorders: No Genitourinary: No Hepatitis: No Hiatal Hernia: No Hypertension: Yes Immune Disorder: No Implanted Vascular Access Dvce: No Medical other: Yes (STEROID INJECTIONS) Musculoskeletal: Yes Neurologic: No Psychiatric: Yes (ANXIETY) Reproductive: No Respiratory: No Immunizations Current: No Radiation Therapy: No Seizures: No Sleep Apnea: No Thyroid Disease: Yes (hypothyroid) Tetanus Vaccination: > 5 Years ?: Not : 0 Tubal Ligation: Yes (CERVICAL ABLATION) Past Surgical History Abdominal Surgery: No AICD: No Body Medical Devices: NONE Cardiac Surgery: No Ear Surgery: Yes (TYMPNOPLASTY) Endocrine Surgery: No Eye Surgery: No Genitourinary Surgery: No Gynecologic Surgery: Yes (TUBAL LIGATION, UTERINE ABLASION) Joint Replacement: No Neurologic Surgery: No Oral Surgery: Yes (septoplasty tympnoplasty rhinoplasty) Pacemaker: No Thoracic Surgery: No Tympanostomy Tube: Yes Other Surgery: Yes (UTERINE ABLASION ,septoplasty) Social History Alcohol Use: Yes (OCCASIONAL) Tobacco Use: No Substance Use: No Allergies-Medications (Allergen,Severity, Reaction): Coded Allergies: oxycodone (Unverified Allergy, Severe, nausea, 06/28/17) Reported Meds & Prescriptions Reported Meds & Active Scripts Active Xarelto (Rivaroxaban) 20 Mg Tab 20 Mg PO DAILY Metoprolol Tartrate 50 Mg Tab 50 Mg PO DAILY Reported Lexapro (Escitalopram Oxalate) 10 Mg Tab 10 Mg PO DAILY Synthroid (Levothyroxine Sodium) 100 Mcg Tab 100 Mcg PO DAILY PT CAN ONLY TAKE SYNTHROID NO GENERIC Benadryl Allergy (Diphenhydramine HCl) 25 Mg Tablet 50 Mg l-Lysine (Lysine HCl) 500 Mg Tab 1,000 Mg Zyrtec (Cetirizine HCl) 10 Mg Tablet 10 Mg PO DAILY Stool Softener (Docusate Sodium) 100 Mg Tab 200 Mg Liothyronine (Liothyronine Sodium) 25 Mcg Tab 25 Mcg PO EVERY OTHER DAY Valtrex (Valacyclovir HCl) 1 Gm Tab 1,000 Mg PO DAILY Review of Systems Except as stated in HPI: all other systems reviewed are Neg Physical Exam Narrative GENERAL: 42-year-old female pleasant well-nourished well-developed Vital Signs Date Time Temp Pulse Resp B/P (MAP) Pulse Ox O2 Delivery O2 Flow Rate FiO2 08/31/17 01:24 218 19:37 18 08/30/17 19:09 98.7 85 16 137/89 (105) 99 Room Air SKIN: Warm and dry. HEAD: Atraumatic. Normocephalic. EYES: Pupils equal and round. No scleral icterus. No injection or drainage. ENT: No nasal bleeding or discharge. Mucous membranes pink and moist. NECK: Trachea midline. No JVD. CARDIOVASCULAR: Regular rate and rhythm. RESPIRATORY: No accessory muscle use. Clear to auscultation. Breath sounds equal bilaterally. GASTROINTESTINAL: Abdomen soft, non-tender, nondistended. Hepatic and splenic margins not palpable. MUSCULOSKELETAL: Extremities without clubbing, cyanosis, or edema. No obvious deformities. NEUROLOGICAL: Dorsiflexion left toe is weak compared to the right. Plantar flexion is weak in the left foot compared to the right. Hip flexion is somewhat limited on the left side compared to the right. The patient is ambulatory. Sensation is preserved bilaterally. PSYCHIATRIC: Appropriate mood and affect; insight and judgment normal. Data Data Last Documented VS Vital Signs Date Time Temp Pulse Resp B/P (MAP) Pulse Ox O2 Delivery O2 Flow Rate FiO2 08/31/17 01:24 218 19:37 18 08/30/17 19:09 98.7 85 99 Room Air Orders Orders Complete Blood Count With Diff (08/30/17 19:16) Basic Metabolic Panel (Bmp) (08/30/17 19:16) Urinalysis - C+S If Indicated (08/30/17 19:16) Urine Culture (08/30/17 19:36) Basic Metabolic Panel (Bmp) (08/30/17 22:09) Complete Blood Count With Diff (08/30/17 22:09) Iv Access Insert/Monitor (08/30/17 22:09) Ecg Monitoring (08/30/17 22:09) Oximetry (08/30/17 22:09) Sodium Chloride 0.9% Flush (Ns Flush) (08/30/17 22:15) Mri L Spine W&W/O Contrast (08/30/17 22:09) Gadodiamide Pf Inj (Omniscan Pf Inj) (08/30/17 19:06) Ed Discharge Order (08/31/17 00:59) Labs Laboratory Tests Test 08/30/17 19:36 White Blood Count 11.7 TH/MM3 Red Blood Count 4.60 MIL/MM3 Hemoglobin 14.1 GM/DL Hematocrit 40.7 % Mean Corpuscular Volume 88.3 FL Mean Corpuscular Hemoglobin 30.5 PG Mean Corpuscular Hemoglobin Concent 34.6 % Red Cell Distribution Width 13.5 % Platelet Count 262 TH/MM3 Mean Platelet Volume 7.4 FL Neutrophils (%) (Auto) 61.1 % Lymphocytes (%) (Auto) 32.3 % Monocytes (%) (Auto) 5.2 % Eosinophils (%) (Auto) 0.9 % Basophils (%) (Auto) 0.5 % Neutrophils # (Auto) 7.1 TH/MM3 Lymphocytes # (Auto) 3.8 TH/MM3 Monocytes # (Auto) 0.6 TH/MM3 Eosinophils # (Auto) 0.1 TH/MM3 Basophils # (Auto) 0.1 TH/MM3 CBC Comment DIFF FINAL Differential Comment Urine Color YELLOW Urine Turbidity CLEAR Urine pH 7.5 Urine Specific [place] 1.025 Urine Protein TRACE mg/dL Urine Glucose (UA) NEG mg/dL Urine Ketones NEG mg/dL Urine Occult Blood NEG Urine Nitrite NEG Urine Bilirubin NEG Urine Urobilinogen LESS THAN 2.0 MG/DL Urine Leukocyte Esterase MOD Urine RBC 2 /hpf Urine WBC 1 /hpf Urine Squamous Epithelial Cells 3 /hpf Urine Bacteria MOD /hpf Urine Mucus FEW /lpf Microscopic Urinalysis Comment CULTURE INDICATED Blood Urea Nitrogen 10 MG/DL Creatinine 0.71 MG/DL Random Glucose 111 MG/DL Calcium Level 8.6 MG/DL Sodium Level 137 MEQ/L Potassium Level 3.7 MEQ/L Chloride Level 105 MEQ/L Carbon Dioxide Level 26.0 MEQ/L Anion Gap 6 MEQ/L Estimat Glomerular Filtration Rate 90 ML/MIN MDM Medical Decision Making Medical Screen Exam Complete: Yes Emergency Medical Condition: Yes Medical Record Reviewed: Yes Differential Diagnosis Spinal canal stenosis, spinal stenosis, infection Narrative Course CBC & BMP Diagram 08/30/17 19:36 Calcium Level 8.6 Last Impressions Lumbar Spine MRI 08/30/17 6334 Signed Impressions: Service Date/Time: Wednesday, August 30, 2017 23:05 - CONCLUSION: 1. Status post left laminectomy at the L5-S1 level with enhancing epidural soft tissue. There is a small to moderate size right paracentral disc protrusion with mild mass effect on the anterior thecal sac. There is no disc fragment. 2. Mild disc bulge at L4-5 with mild flattening of the anterior thecal sac. 3. Mild discogenic edema in the endplates at the L5-S1 level. 4. Mild degenerative changes involving lower facet joints. Dmitriy Andrade MD The patient is resting comfortably and feels better, is alert and in no distress. The patients results and examination findings were discussed. The repeat examination is essentially unchanged. The history, exam, diagnostic testing, and current condition do not suggest any significant pathology to warrant further testing, continued ED treatment, admission, or surgical evaluation at this point. The vital signs have been stable. The patient does not have uncontrollable pain, intractable vomiting, or other significant symptoms. The patient's condition is stable and appropriate for discharge. The patient will pursue further outpatient evaluation with a primary care physician or other designated or consulting physician as indicated in the discharge instructions. The patient expressed understanding and was agreeable with this plan. Diagnosis Primary Impression: Status post laminectomy Additional Impression: Left leg weakness Referrals: Edgar Harvey MD 2 days Med/Other Pt SpecificInfo: No Change to Meds Disposition: 01 DISCHARGE HOME Condition: Stable Jeremy Mason MD Aug 31, 2017 01:01
== END 2017-08-31 01:20 | disposition home or self-care (01) ==
LOC: NEPC 19:05
DX: R53.1 Weakness (principal); Z98.890 Other specified postprocedural states; R82.99 Other abnormal findings in urine
CPT/HCPCS: 72158; 80048; 81001; 85025; 87086; 99284; A9579